=== PATIENT | female | born 1985 | race Caucasian/White ===

== ENCOUNTER 2017-05-30 22:50 | Emergency (ER) | payer BC ==
[2017-05-30 22:57] VITALS: BP 125/66
[2017-05-30] MEDS ORDERED: TORADOL 60 MG VIAL IM ONE (23:14)
--- NOTE | 2017-05-30 23:15 | DR.GENAD ---
HPI - PCP Primary Care Physician: SANTINO - Complaint/Symptoms Chief Complaint:: LEFT WRIST INJURY FROM PLAYING WITH DOG; EDEMA NOTED TO TOP OF WRIST Self Treatment fo Chief Complaint: TYLENOL X 2 - Source History Provided: Patient - Mode of Arrival Mode of Arrival: Ambulatory - Timing Onset of Chief Complaint: 05/30/17 PMH - PMH Past Medical History: Yes Past Medical History: GERD, Hypertension Past Surgical History: Yes Surgical History: Appendectomy, Cholecystectomy - Family History History of Family Medical Conditions: No Family Medical History: Diabetes Mellitus, Hypertension - Social History Does patient currently use any type of tobacco product: No Have you used tobacco products in the last 12 months: No Type of Tobacco Use: None Alcohol Use: None Do you use any recreational Drugs:: No Lives With: Spouse Lives Where: Home - infectious screening In the last 2 months have you had wt loss of >10#?: NO Have you had fever, night sweats or hemotysis?: No Have you traveled outside the country in the last 6 months?: No ROS - Review of Systems Constitutional: No Symptoms Reported Eyes: No Symptoms Reported ENTM: No Symptoms Reported Respiratoy: No Symptoms Reported Cardiovascular: No Symptoms Reported Gastrointestinal/Abdominal: No Symptoms Reported Genitourinary: No Symptoms Reported Neurological: No Symptoms Reported Musculoskeletal: Left, Wrist (Pain s/p tug of war with l00lb dog) Integumentary: No Symptoms Reported Hematologic/Lymphatic: No Symptoms Reported Endocrine: No Symptoms Reported Psychiatric: No Symptoms Reported All Other Systems: Reviewed and Negative PE - Vital Signs Vitals: Temperature 98.5 F Pulse Rate 85 Respiratory Rate 20 Blood Pressure [Left Arm] 131/69 Blood Pressure [Right Arm] 90/50 Blood Pressure 125/66 O2 Sat by Pulse Oximetry 99 - General Limitations: No Limitations General Appearance: Alert, In No Apparent Distress - Head Head Exam: Normal Inspection, Atraumatic - Eyes Eye exam: Normal Appearance, PERRL, EOMI - ENT ENT Exam: Normal Exam External Ear Exam: Normal External Inspection TM/Canal Exam: Bilateral Normal Nose Exam: Normal Nose Exam Mouth Exam: Normal Inspection Throat Exam: Normal Inspection - Neck Neck Exam: Normal Inspection - Chest Chest Inspection: Normal Inspection - Respiratory Respiratory Exam: Normal Lung Sounds Bilat Respiratory Exam: Bilateral Clear to Auscultation - Cardiovascular Cardiovascular Exam: Regular Rate - Abdominal Exam Abdominal Exam: Normal Inspection, Normal Bowel Sounds Abdominal Tenderness: negative: RUQ, RLQ, LUQ, LLQ, Epigastrium, Suprapubic, Diffuse, Mild, Moderate, Severe, Other - Extremities Extremities Exam: Normal Inspection - Back Back Exam: Normal Inspection - Neurologic Neurological Exam: Alert, Oriented X3, CN II-XII Intact - Psychiatric Psychiatric Exam: Normal Affect - Skin Skin Exam: Warm, Dry ROR - XRAY XRAY Interpreted by: Self (No fracture) - Diagnosis Discharge Problem: Left wrist sprain Qualifiers: Encounter type: initial encounter Qualified Code(s): S63.502A - Unspecified sprain of left wrist, initial encounter - Discharge Plan Condition: Stable - Follow ups/Referrals Follow ups/Referrals: ANTONI DE [Primary Care Provider] - 3 days - Instructions
[2017-05-30] MEDS ORDERED: TORADOL 60 MG VIAL ONE (23:17)
[2017-05-31] MEDS ORDERED: NORCO 7.5/325 MG TAB PO ONE (00:31)
[2017-05-31] MEDS ORDERED: NORCO 7.5/325 MG TAB ONE (00:34)
== END 2017-05-31 00:40 | disposition home or self-care (01) ==
LOC: ER 23:00
DX: S63.502A Unspecified sprain of left wrist, initial encounter (principal); Y33.XXXA Other specified events, undetermined intent, initial encounter; Y92.9 Unspecified place or not applicable
CPT/HCPCS: 29125; 73100; 96372; 99282; J1885

== ENCOUNTER 2017-07-01 06:16 | Emergency (ER) | payer BC ==
--- NOTE | 2017-07-01 06:58 | DR.GENAD ---
HPI - PCP Primary Care Physician: liss - Complaint/Symptoms Chief Complaint Doctors Comments: Patient presents with complaint of not feeling well, low grade temperature, nauses w/o vomiting. She denies urinary frequency, dysuria or urgency. Self Treatment fo Chief Complaint: none - Source History Provided: Patient - Mode of Arrival Mode of Arrival: Wheelchair - Timing Onset of Chief Complaint: 07/01/17 PMH - PMH Past Medical History: Yes Past Medical History: GERD, Hypertension Past Surgical History: Yes Surgical History: Appendectomy, Cholecystectomy - Family History History of Family Medical Conditions: Yes Family Medical History: Diabetes Mellitus, Hypertension - Social History Does patient currently use any type of tobacco product: No Have you used tobacco products in the last 12 months: No Type of Tobacco Use: None Does any household member use tobacco: No Alcohol Use: None Do you use any recreational Drugs:: No Lives With: Spouse Lives Where: Home - infectious screening In the last 2 months have you had wt loss of >10#?: NO Have you had fever, night sweats or hemotysis?: No Have you traveled outside the country in the last 6 months?: No Isolation: Standard ROS - Review of Systems Eyes: No Symptoms Reported ENTM: No Symptoms Reported Respiratoy: No Symptoms Reported Cardiovascular: No Symptoms Reported Gastrointestinal/Abdominal: No Symptoms Reported Genitourinary: No Symptoms Reported Neurological: No Symptoms Reported Musculoskeletal: No Symptoms Reported Integumentary: No Symptoms Reported Hematologic/Lymphatic: No Symptoms Reported Endocrine: No Symptoms Reported Psychiatric: No Symptoms Reported All Other Systems: Reviewed and Negative PE - Vital Signs Vitals: Temperature 97.6 F Pulse Rate 83 Respiratory Rate 20 Blood Pressure [Left Arm] 108/69 Blood Pressure [Right Arm] 113/69 Blood Pressure 125/84 O2 Sat by Pulse Oximetry 99 - General Limitations: No Limitations General Appearance: Alert, In No Apparent Distress - Head Head Exam: Normal Inspection, Atraumatic - Eyes Eye exam: Normal Appearance, PERRL, EOMI - ENT ENT Exam: Normal Exam, Normal Oropharynx External Ear Exam: Normal External Inspection TM/Canal Exam: Bilateral Normal Nose Exam: Normal Nose Exam Mouth Exam: Normal Inspection Throat Exam: Normal Inspection - Neck Neck Exam: Normal Inspection, Full ROM - Chest Chest Inspection: Normal Inspection - Respiratory Respiratory Exam: Normal Lung Sounds Bilat Respiratory Exam: Bilateral Clear to Auscultation - Cardiovascular Cardiovascular Exam: Regular Rate, Normal Rhythm - Abdominal Exam Abdominal Exam: Normal Inspection, Normal Bowel Sounds Abdominal Tenderness: negative: RUQ, RLQ, LUQ, LLQ, Epigastrium, Suprapubic, Diffuse, Mild, Moderate, Severe, Other - Extremities Extremities Exam: Normal Inspection, Full ROM - Back Back Exam: Normal Inspection, Full ROM - Neurologic Neurological Exam: Alert, Oriented X3, CN II-XII Intact - Psychiatric Psychiatric Exam: Normal Affect - Skin Skin Exam: Warm, Dry, Intact Course - Reevaluation 1st: Improved ROR - Labs Reviewed Result Diagrams: 07/01/17 07:10 07/01/17 07:10 Laboratory: WBC 10.2 X10^3/uL (3.6-10.0) H 07/01/17 07:10 RBC 4.81 X10^6/uL (3.5-5.4) 07/01/17 07:10 Hgb 14.5 g/dL (12.0-16.0) 07/01/17 07:10 Hct 41.9 % (36.0-47.0) 07/01/17 07:10 MCV 87.0 fL (80.0-100.0) 07/01/17 07:10 MCH 30.0 pg (27.0-34.0) 07/01/17 07:10 MCHC 34.5 g/dL (33.0-35.0) 07/01/17 07:10 RDW 13.4 % (11.6-16.5) 07/01/17 07:10 Plt Count 219 X10^3/uL (150.0-450.0) 07/01/17 07:10 MPV 10.1 fL (7.4-11.0) 07/01/17 07:10 Neut % 77.4 % (42.0-75.0) H 07/01/17 07:10 Lymph % 14.3 % (21.0-51.0) L 07/01/17 07:10 [place] % 6.2 % (0.0-13.0) 07/01/17 07:10 Eos % 1.4 % (0.9-2.9) 07/01/17 07:10 Baso % 0.7 % (0.2-1.0) 07/01/17 07:10 Neut # 7.9 x10^3/uL (2.2-4.8) H 07/01/17 07:10 Lymph # 1.5 X10^3/uL (1.3-2.9) 07/01/17 07:10 [place] # 0.6 x10^3/uL (0.3-0.8) 07/01/17 07:10 Eos # 0.1 x10^3/uL (0.0-0.2) 07/01/17 07:10 Baso # 0.1 X10^3/uL (0.0-0.1) 07/01/17 07:10 Absolute Nucleated RBC 0.0 /100WBC 07/01/17 07:10 Sodium 136 mmol/L (136-145) 07/01/17 07:10 Corrected Sodium 137 mmol/L (136-145) 07/01/17 07:10 Potassium 4.0 mmol/L (3.5-5.1) 07/01/17 07:10 Chloride 102 mmol/L (98-107) 07/01/17 07:10 Carbon Dioxide 25.4 mmol/L (21-32) 07/01/17 07:10 BUN 7 mg/dL (7-18) 07/01/17 07:10 Creatinine 0.77 mg/dL (0.55-1.02) 07/01/17 07:10 Est GFR (MDRD) Af Amer > 60 (>60) 07/01/17 07:10 Est GFR (MDRD) Non-Af > 60 (>60) 07/01/17 07:10 Glucose 124 mg/dL (65-99) H 07/01/17 07:10 Calcium 8.8 mg/dL (8.5-10.1) 07/01/17 07:10 C-Reactive Protein 32.10 mg/L (0-3.0) H 07/01/17 07:10 Streptococcus Screen Negative (NEGATIVE) 07/01/17 07:13 - Diagnosis Discharge Problem: Systemic viral illness - Discharge Plan Condition: Stable - Follow ups/Referrals Follow ups/Referrals: RONA OJEDA [Primary Care Provider] - 3 days - Instructions
[2017-07-01] MEDS ORDERED: NS 1000 ML 1,000 ML ONE (07:07)
[2017-07-01] MEDS: NS 1000 ML 1,000 ML IV ONE (07:18)
[2017-07-01 07:22] LABS: BASOPHILS # (AUTO) 0.1 X10^3/uL (0.0-0.1); BASOPHILS % (AUTO) 0.7 % (0.2-1.0); EOSINOPHILS # (AUTO) 0.1 x10^3/uL (0.0-0.2); EOSINOPHILS % (AUTO) 1.4 % (0.9-2.9); HEMATOCRIT 41.9 % (36.0-47.0); HEMOGLOBIN 14.5 g/dL (12.0-16.0); LYMPHOCYTES # (AUTO) 1.5 X10^3/uL (1.3-2.9); LYMPHOCYTES % (AUTO) 14.3 % (21.0-51.0); MEAN CORPUSCULAR HGB CONC 34.5 g/dL (33.0-35.0); MEAN PLATELET VOLUME 10.1 fL (7.4-11.0); MONOCYTES # (AUTO) 0.6 x10^3/uL (0.3-0.8); MONOCYTES % (AUTO) 6.2 % (0.0-13.0); NEUTROPHILS # (AUTO) 7.9 x10^3/uL (2.2-4.8); NEUTROPHILS % (AUTO) 77.4 % (42.0-75.0); PLATELET COUNT 219 X10^3/uL (150.0-450.0); RED BLOOD COUNT 4.81 X10^6/uL (3.5-5.4); RED CELL DISTRIBUTION WIDTH 13.4 % (11.6-16.5); WHITE BLOOD COUNT 10.2 X10^3/uL (3.6-10.0)
[2017-07-01 07:26] LABS: BLOOD UREA NITROGEN 7 mg/dL (7-18); CALCIUM 8.8 mg/dL (8.5-10.1); CARBON DIOXIDE 25.4 mmol/L (21-32); CHLORIDE 102 mmol/L (98-107); COR NA(FOR HYPERGLY) 137 mmol/L (136-145); CREATININE 0.77 mg/dL (0.55-1.02); SODIUM 136 mmol/L (136-145); eGFR BLACK RACES > 60 (>60); eGFR NON BLACK RACES > 60 (>60)
[2017-07-01 07:50] VITALS: BP 113/69
== END 2017-07-01 08:25 | disposition home or self-care (01) ==
LOC: ER 06:16
DX: B97.89 Other viral agents as the cause of diseases classified elsewhere (principal)
CPT/HCPCS: 36415; 80048; 85025; 86140; 87070; 87880; 96365; 99282; 99283; A4222

== ENCOUNTER 2017-07-04 20:11 | Emergency (ER) | payer BC ==
[2017-07-04 20:16] VITALS: BMI 47.2
--- NOTE | 2017-07-04 20:51 | DR.GENAD ---
HPI - PCP Primary Care Physician: RONA OJEDA - HPI Comment HPI Comment: PAIN PERSISTENT TONIGHT AND INTENSITY IS INCREASING. PATIENT ALSO HAVE SEVERE HEADACHE WITH NAUSEA AND VOMITING. NO FEVER. NO SINUS DRAINAGE. INCREASE STRESS FROM PROBLEM WITH PATIENTS DAUGHTER. - Complaint/Symptoms Chief Complaint Doctors Comments: CHEST PAIN TONIGHT PER BELOW HISTORY. SIMILAR PAIN FEW DAYS AGO. Chief Complaint:: LEFT SIDE CHEST PAIN INTO LEFT NECK , SHOULDER THRU TO BACK CONSTANT PAIN. I AM GETTING SHORT OF BREATH. I CAN'T DISTIGUISH IF THIS IS MY ANXIETY OR SOMETHING IS GOING ON. THIS HAPPENED SATURDAY NIGHT TOO, I WAS JUST HERE ON SATURDAY MORNING. - Nurses notes reviewed Nurses Notes Review: Yes - Source History Provided: Patient - Mode of Arrival Mode of Arrival: Ambulatory - Timing Onset of Chief Complaint: 07/04/17 Came on: Suddenly - Duration Duration: Constant Duration: Days - Severity Severity: Moderate PMH - PMH Past Medical History: Yes Past Medical History: Anxiety, GERD, Hypertension Past Surgical History: Yes Surgical History: Appendectomy, Cholecystectomy - Family History History of Family Medical Conditions: Yes Family Medical History: Diabetes Mellitus, Hypertension - Social History Does patient currently use any type of tobacco product: No Have you used tobacco products in the last 12 months: No Type of Tobacco Use: None Does any household member use tobacco: No Alcohol Use: None Do you use any recreational Drugs:: No Lives With: Spouse, Family Lives Where: Home - infectious screening Have you traveled outside the country in the last 6 months?: No Isolation: Standard ROS - Review of Systems Constitutional: Weakness, Fatigue. negative: Chills, Fever Eyes: No Symptoms Reported. negative: Eye Pain, Discharge ENTM: No Symptoms Reported. negative: Ear Pain, Nose Discharge, Nose Congestion , Throat Pain Respiratoy: No Symptoms Reported, Non-Productive Cough, Short of Breath. negative: Productive Cough, Wheezing, Hemoptysis Cardiovascular: Chest Pain. negative: Edema, Palpitations Gastrointestinal/Abdominal: Nausea, Vomiting Genitourinary: No Symptoms Reported. negative: Dysuria, Frequency, Hematuria Neurological: Headache, Weakness, Dizziness Musculoskeletal: Muscle Pain Integumentary: No Symptoms Reported. negative: Rash, Juandice Hematologic/Lymphatic: No Symptoms Reported Endocrine: No Symptoms Reported All Other Systems: Reviewed and Negative PE - Vital Signs Vitals: Pulse Rate [Apical] 80 Pulse Rate 79 Respiratory Rate 18 Blood Pressure [Left Arm] 137/77 Blood Pressure [Right Arm] 117/75 Blood Pressure 113/82 O2 Sat by Pulse Oximetry 97 - General Limitations: No Limitations General Appearance: Alert - Head Head Exam: Normal Inspection - Eyes Eye exam: Normal Appearance - ENT ENT Exam: Normal External Ear Exam External Ear Exam: Normal External Inspection TM/Canal Exam: Bilateral Normal Nose Exam: Normal Nose Exam Mouth Exam: Normal Inspection Throat Exam: Normal Inspection - Neck Neck Exam: Trachea Midline - Chest Chest Inspection: Symmetric Chest Wall Rise - Respiratory Respiratory Exam: Normal Lung Sounds Bilat Respiratory Exam: Bilateral Clear to Auscultation - Cardiovascular Cardiovascular Exam: Regular Rate, Normal Rhythm, Normal Heart Sounds - Abdominal Exam Abdominal Exam: Normal Bowel Sounds, Soft. negative: Tenderness - Extremities Extremities Exam: Normal Inspection - Back Back Exam: Normal Inspection - Neurologic Neurological Exam: Alert, Oriented X3 - Psychiatric Psychiatric Exam: Normal Affect, Normal Mood - Skin Skin Exam: Normal Color MDM - Additional Information Additional Information Obtained From: Family - Differential Diagnosis Differential Diagnosis: CHEST PAIN, KS, PNEUMONIA, PE, SINUSITIS, CVA, CEREBRAL TUMOR Course - Treatment Treatment: SEE ORDERS. - Education/Counseling Education/Counseling: Patient, Family, Education Educated On: Treatment, Diagnosis, Needs for Follow Up ROR - Labs Reviewed Laboratory Results Reviewed?: Yes Result Diagrams: 07/04/17 20:57 07/04/17 20:57 Laboratory: WBC 9.8 X10^3/uL (3.6-10.0) 07/04/17 20:57 RBC 4.84 X10^6/uL (3.5-5.4) 07/04/17 20:57 Hgb 14.5 g/dL (12.0-16.0) 07/04/17 20:57 Hct 42.2 % (36.0-47.0) 07/04/17 20:57 MCV 87.1 fL (80.0-100.0) 07/04/17 20:57 MCH 30.0 pg (27.0-34.0) 07/04/17 20:57 MCHC 34.5 g/dL (33.0-35.0) 07/04/17 20:57 RDW 13.6 % (11.6-16.5) 07/04/17 20:57 Plt Count 259 X10^3/uL (150.0-450.0) 07/04/17 20:57 MPV 9.8 fL (7.4-11.0) 07/04/17 20:57 Neut % 70.1 % (42.0-75.0) 07/04/17 20:57 Lymph % 18.9 % (21.0-51.0) L 07/04/17 20:57 [place] % 8.7 % (0.0-13.0) 07/04/17 20:57 Eos % 1.7 % (0.9-2.9) 07/04/17 20:57 Baso % 0.6 % (0.2-1.0) 07/04/17 20:57 Neut # 6.9 x10^3/uL (2.2-4.8) H 07/04/17 20:57 Lymph # 1.9 X10^3/uL (1.3-2.9) 07/04/17 20:57 [place] # 0.9 x10^3/uL (0.3-0.8) H 07/04/17 20:57 Eos # 0.2 x10^3/uL (0.0-0.2) 07/04/17 20:57 Baso # 0.1 X10^3/uL (0.0-0.1) 07/04/17 20:57 Absolute Nucleated RBC 0.0 /100WBC 07/04/17 20:57 INR Target Range - 07/04/17 20:57 INR 0.92 (0.8-1.3) 07/04/17 20:57 PTT 28.4 SECONDS (22.9-36.5) 07/04/17 20:57 PTT Comment - 07/04/17 20:57 D-Dimer 502 ng/mL (0-400) H* 07/04/17 20:57 Sodium 139 mmol/L (136-145) 07/04/17 20:57 Corrected Sodium TNP 07/04/17 20:57 Potassium 3.9 mmol/L (3.5-5.1) 07/04/17 20:57 Chloride 102 mmol/L (98-107) 07/04/17 20:57 Carbon Dioxide 27.8 mmol/L (21-32) 07/04/17 20:57 BUN 8 mg/dL (7-18) 07/04/17 20:57 Creatinine 0.89 mg/dL (0.55-1.02) 07/04/17 20:57 Est GFR (MDRD) Af Amer > 60 (>60) 07/04/17 20:57 Est GFR (MDRD) Non-Af > 60 (>60) 07/04/17 20:57 Glucose 105 mg/dL (65-99) H 07/04/17 20:57 Calcium 9.0 mg/dL (8.5-10.1) 07/04/17 20:57 Corrected Calcium TNP 07/04/17 20:57 Total Bilirubin 0.20 mg/dL (0.2-1.0) 07/04/17 20:57 AST 26 Units/L (15-37) 07/04/17 20:57 ALT 35 Units/L (12-78) 07/04/17 20:57 Alkaline Phosphatase 81 Units/L (46-116) 07/04/17 20:57 Creatine Kinase 70 Units/L (26-192) 07/04/17 20:57 CK-MB (CK-2) < 1.0 ng/mL (0-4.0) 07/04/17 20:57 CK/CKMB % Calc 1.4 % (<4) 07/04/17 20:57 Troponin I < 0.02 ng/mL (0-1.5) 07/04/17 20:57 Total Protein 7.6 g/dL (6.4-8.2) 07/04/17 20:57 Albumin 3.6 g/dL (3.4-5.0) 07/04/17 20:57 Globulin 4.0 g/dL (2.5-4.5) 07/04/17 20:57 Albumin/Globulin Ratio 0.9 Ratio (1.1-2.1) L 07/04/17 20:57 H. pylori IgG Antibody Negative (NEGATIVE) 07/04/17 20:57 - XRAY XRAY Interpreted by: Radiologist XRAY Findings: REPORT DISCUSS WITH PATIENT AND HER . - EKG Rhythm: NSR (EKG NOTED) - Diagnosis Discharge Problem: Chest pain Qualifiers: Chest pain type: precordial pain Qualified Code(s): R07.2 - Precordial pain Headache Qualifiers: Headache type: tension-type Headache chronicity pattern: acute headache Intractability: intractable Qualified Code(s): G44.201 - Tension-type headache, unspecified, intractable - Discharge Plan Disposition: HOME, SELF-CARE Condition: Stable Prescriptions: Hydroxyzine Pamoate [Vistaril] 50 mg PO TID PRN #20 cap PRN Reason: Ketorolac Tromethamine [Toradol Tab] 10 mg PO Q8H PRN #20 tab PRN Reason: Pain Ondansetron [Zofran ODT 8 mg] 8 mg PO Q8H PRN #15 tab PRN Reason: Nausea/Vomiting - Follow ups/Referrals Follow ups/Referrals: RONA OJEDA [Primary Care Provider] - 3 days - Instructions Instructions: Tension Headache, [id number], Chest Pain Observation Additional Instructions: RETURN TO ED IF WORSE.
[2017-07-04 21:06] LABS: BASOPHILS # (AUTO) 0.1 X10^3/uL (0.0-0.1); BASOPHILS % (AUTO) 0.6 % (0.2-1.0); EOSINOPHILS # (AUTO) 0.2 x10^3/uL (0.0-0.2); EOSINOPHILS % (AUTO) 1.7 % (0.9-2.9); HEMATOCRIT 42.2 % (36.0-47.0); HEMOGLOBIN 14.5 g/dL (12.0-16.0); LYMPHOCYTES # (AUTO) 1.9 X10^3/uL (1.3-2.9); LYMPHOCYTES % (AUTO) 18.9 % (21.0-51.0); MEAN CORPUSCULAR HGB CONC 34.5 g/dL (33.0-35.0); MEAN CORPUSCULAR VOLUME 87.1 fL (80.0-100.0); MEAN PLATELET VOLUME 9.8 fL (7.4-11.0); MONOCYTES # (AUTO) 0.9 x10^3/uL (0.3-0.8); MONOCYTES % (AUTO) 8.7 % (0.0-13.0); NEUTROPHILS # (AUTO) 6.9 x10^3/uL (2.2-4.8); NEUTROPHILS % (AUTO) 70.1 % (42.0-75.0); PLATELET COUNT 259 X10^3/uL (150.0-450.0); RED BLOOD COUNT 4.84 X10^6/uL (3.5-5.4); RED CELL DISTRIBUTION WIDTH 13.6 % (11.6-16.5); WHITE BLOOD COUNT 9.8 X10^3/uL (3.6-10.0)
[2017-07-04 21:27] LABS: ALANINE AMINOTRANSFERASE 35 Units/L (12-78); ALBUMIN 3.6 g/dL (3.4-5.0); ALKALINE PHOSPHATASE 81 Units/L (46-116); ASPARTATE AMINO TRANSFERASE 26 Units/L (15-37); BLOOD UREA NITROGEN 8 mg/dL (7-18); CARBON DIOXIDE 27.8 mmol/L (21-32); CHLORIDE 102 mmol/L (98-107); CKMB % 1.4 % (<4); CREATINE KINASE 70 Units/L (26-192); CREATINE KINASE MB < 1.0 ng/mL (0-4.0); CREATININE 0.89 mg/dL (0.55-1.02); SODIUM 139 mmol/L (136-145); TOTAL PROTEIN 7.6 g/dL (6.4-8.2); TROPONIN I < 0.02 ng/mL (0-1.5); eGFR BLACK RACES > 60 (>60); eGFR NON BLACK RACES > 60 (>60)
--- NOTE | 2017-07-04 22:19 | RAD ---
Chest, one view Indication: Left-sided chest pain, shortness of breath Comparison: 07/11/2016 Findings: Cardiac silhouette size is within normal limits for technique and low lung volumes. The anibal gs are hypoinflated, but essentially clear without dense infiltrate or large effusion. Impression: No acute chest process. Reported By:
--- NOTE | 2017-07-04 22:24 | CT ---
CT head without contrast Indication: Acute frontal headache Comparison: None Technique: CT images of the head were obtained without contrast. Automatic exposure control was utili MynewMDd. Findings: There is no acute bleed, generalized edema, mass effect, or abnormal extra-axial collection . The ventricles are nondilated. No acute skeletal abnormality. The visualized paranasal sinuses and mastoid air cells are clear. Impression: No acute intracranial abnormality. Reported By:
--- NOTE | 2017-07-04 23:07 | CT ---
CTA chest Indication: Left-sided chest pain Technique: Helical CT images of the chest were obtained with IV contrast. Reformatted images in the c oronal and sagittal planes and 3D MIP images were also generated for review. Comparison: None Findings: Contrast bolus timing is adequate for detection of PTE. No pulmonary thromboembolus is iden tified. There is no pulmonary arterial dilatation or evidence of right heart strain. The heart size i s normal without pericardial effusion. The thoracic aorta and great vessels are normal in contour and caliber. The central airways are patent. There is no lymphadenopathy. The lungs are clear without fo apolinar consolidation or incidental nodule/mass. No pleural effusion or pneumothorax is identified. Limited arterial phase images of the upper abdomen demonstrate no acute abnormality. No aggressive os seous lesions are identified. Impression: No PTE or acute chest process. Reported By:
[2017-07-04] MEDS ORDERED: TORADOL 30 MG VIAL IVP ONE (23:26)
[2017-07-04] MEDS ORDERED: VISTARIL PO ONE ×2 (23:27→23:32)
[2017-07-04] MEDS ORDERED: TORADOL 30 MG VIAL ONE (23:32)
[2017-07-04 23:48] VITALS: BP 137/77
== END 2017-07-04 23:48 | disposition home or self-care (01) ==
LOC: ER 20:24
DX: R07.2 Precordial pain (principal); G44.201 Tension-type headache, unspecified, intractable
CPT/HCPCS: 36415; 70450; 71010; 71275; 80053; 82550; 82553; 84484; 85025; 85378; 85610; 85730; 86677; 93005; 93010; 96365; 96374; 99283; A4222; Q0177; J1885

== ENCOUNTER 2017-07-26 21:50 | Emergency (ER) | payer BC ==
[2017-07-26 21:58] VITALS: BP 128/73; BMI 46.5
--- NOTE | 2017-07-26 23:29 | DR.GENAD ---
HPI - PCP Primary Care Physician: srinivasa - Complaint/Symptoms Chief Complaint Doctors Comments: Patient is complaining of sore throat; problems swallowing, cough with nasal congestion off and on for the past three weeks. States she has a cought but is non-productive. She denies tobacco usage. states her periods has been regular and her LMP was around [place] and she is not because she cannot get without help. She denies dysuria, hematuria or chest pain. Chief Complaint:: patient has sore throat she she swallows - Nurses notes reviewed Nurses Notes Review: Yes - Source History Provided: Patient - Mode of Arrival Mode of Arrival: Ambulatory - Timing Onset of Chief Complaint: 07/26/17 Came on: Gradually - Duration Duration: Intermittent How lon Duration: Weeks - Location Location: sore throat - Severity Severity: Moderate - Modifying Factors Worsens:: swallowing and cough Improves:: nothing PMH - PMH Past Medical History: Yes Past Medical History: Anxiety, GERD, Hypertension Past Surgical History: Yes Surgical History: Appendectomy, Cholecystectomy - Family History History of Family Medical Conditions: Yes Family Medical History: Diabetes Mellitus, Hypertension - Social History Does patient currently use any type of tobacco product: No Have you used tobacco products in the last 12 months: No Type of Tobacco Use: None Does any household member use tobacco: No Alcohol Use: None Do you use any recreational Drugs:: No Lives With: Family Lives Where: Home - infectious screening In the last 2 months have you had wt loss of >10#?: NO Have you had fever, night sweats or hemotysis?: No Have you traveled outside the country in the last 6 months?: No Isolation: Standard ROS - Review of Systems Constitutional: No Symptoms Reported, Fever Eyes: No Symptoms Reported. negative: See HPI, Eye Pain, Blurred Vision, Tearing, Discharge, Photophobia, Diplopia, Other ENTM: Nose Discharge, Nose Congestion, Throat Pain. negative: No Symptoms Reported, See HPI, Ear Pain, Ear Discharge, Pulling on Ears, Hearing Loss, Nose Pain, Epistaxis, Mouth Pain, Mouth Swelling, Loose Teeth, Drooling, Throat Swelling, Ear Foreign Body Respiratoy: No Symptoms Reported, Non-Productive Cough. negative: See HPI, Productive Cough, Moist Cough, Dry Cough, Hacking Cough, Barking Cough, Brassy Cough, Orthopnea, Short of Breath, Stridor, Wheezing, Hemoptysis, Other Cardiovascular: No Symptoms Reported. negative: See HPI, Chest Pain, Edema, Palpitations, Syncope, Cyanosis, Skin Mottling, Other Gastrointestinal/Abdominal: No Symptoms Reported. negative: See HPI, Abdominal Pain, Constipation, Diarrhea, Nausea, Vomiting, Food Intolerance, Other Genitourinary: No Symptoms Reported. negative: See HPI, Discharge, Dysuria, Frequency, Hematuria, Pain, Bleeding, Other Neurological: No Symptoms Reported. negative: See HPI, Anxiety, Depressed, Emotional Problems, Headache, Numbness, Paresthesia, Pre-existing Deficit, Seizure, Tingling, Tremors, Weakness, Dizziness, Problems Walking, Speech Problem, Other Musculoskeletal: No Symptoms Reported Integumentary: No Symptoms Reported Hematologic/Lymphatic: No Symptoms Reported Endocrine: No Symptoms Reported. negative: See HPI, Excessive Sweating, Flushing, Intolerance to Cold, Intolerance to Heat, Increased Hunger, Increased Thirst, Increased Urine, Unexplained Weight Gain, Unexplained Weight Loss, Failure to Thrive, Decreased Appetite, Other Psychiatric: No Symptoms Reported. negative: See HPI, Anxiety, Depression, Hallucinations, Excessive crying, Suicidal, Other PE - Vital Signs Vitals: Temperature 97.4 F Pulse Rate 78 Respiratory Rate 18 Blood Pressure [Left Arm] 137/77 Blood Pressure [Right Arm] 117/75 Blood Pressure 128/73 O2 Sat by Pulse Oximetry 97 - General Limitations: No Limitations General Appearance: Alert, In Distress (mild) - Head Head Exam: Normal Inspection, Atraumatic, Normocephalic - Eyes Eye exam: Normal Appearance, PERRL, EOMI. negative: Scleral Icterus, Conjunctival Injection, Nystagmus, Miosis, Mydrasis, Periorbital Swelling, Periorbital Tenderness, Other - ENT ENT Exam: Normal Exam, Normal Oropharynx, Normal External Ear Exam, TM's Normal Bilaterally. negative: Mucous Membranes Moist, Mucous Membranes Dry, Other External Ear Exam: Normal External Inspection TM/Canal Exam: Bilateral Normal Nose Exam: Normal Nose Exam Mouth Exam: Normal Inspection. negative: Drooling, Trismus, Lip Swelling, Tongue Elevation, Tongue Swelling, Laceration, Other Throat Exam: Normal Inspection - Neck Neck Exam: Normal Inspection, Full ROM, Trachea Midline - Chest Chest Inspection: Normal Inspection, Symmetric Chest Wall Rise - Respiratory Respiratory Exam: Normal Lung Sounds Bilat. negative: Accessory Muscle Use, Chest Wall Tenderness, Prolonged Expiratory Phase, Respiratory Distress, Stridor , Other Respiratory Exam: Bilateral Clear to Auscultation - Cardiovascular Cardiovascular Exam: Regular Rate, Normal Rhythm, Normal Heart Sounds - Abdominal Exam Abdominal Exam: Normal Inspection, Normal Bowel Sounds, Soft, Tenderness ( epigastric tenderness) Abdominal Tenderness: Epigastrium, Mild. negative: RUQ, RLQ, LUQ, LLQ, Suprapubic, Diffuse, Moderate, Severe, Other - Extremities Extremities Exam: Normal Inspection, Full ROM, Normal Capillary Refill. negative: Tenderness, Edema, Joint Swelling, Calf Tenderness, Other - Back Back Exam: Normal Inspection, Full ROM - Neurologic Neurological Exam: Alert, Oriented X3, CN II-XII Intact, Normal Gait, Reflexes Normal - Psychiatric Psychiatric Exam: Normal Affect, Normal Mood. negative: Depressed, Agitated, Anxious, Flat Affect, Manic, Homicidal Ideation, Suicidal Ideation, Other - Skin Skin Exam: Warm, Dry, Intact, Normal Color ROR - Labs Reviewed Laboratory Results Reviewed?: Yes (all labs results reviewed and discussed with patient) Laboratory: Influenza Type A (PCR) Negative (NEGATIVE) 07/26/17 22:48 Influenza Type B (PCR) Negative (NEGATIVE) 07/26/17 22:48 Streptococcus Screen Negative (NEGATIVE) 07/26/17 22:49 - Diagnosis Discharge Problem: Bronchitis, Pharyngitis - Discharge Plan Disposition: HOME, SELF-CARE Condition: Stable Prescriptions: Amoxicillin/Potassium Clav [Augmentin 875-125 Tablet] 1 tab PO Q12H #20 tab Cetirizine HCl [Zyrtec Tab 10 mg] 10 mg PO DAILY #30 tab Fluticasone Nasal [place] [FLONASE NASAL SPRAY *] 2 sprays ENOSTRIL DAILY #1 each - Follow ups/Referrals Follow ups/Referrals: ANTONI DE [Primary Care Provider] - 3 days - Instructions Instructions: Sinusitis, Adult, [id number], Acute Bronchitis, Strep Throat, [id number]
[2017-07-27] MEDS ORDERED: ROCEPHIN VIAL 1 GM IM ONE (00:05)
[2017-07-27] MEDS ORDERED: BENADRYL CAP 50 MG PO ONE (00:06)
[2017-07-27] MEDS ORDERED: TUSSIONEX PENNKINETIC SUSP PO ONE (00:11)
[2017-07-27] MEDS ORDERED: BENADRYL CAP/TAB 25 MG PO ONE (00:33)
[2017-07-27] MEDS ORDERED: TUSSIONEX PENNKINETIC SUSP ONE (00:34)
[2017-07-27] MEDS ORDERED: ROCEPHIN VIAL 1 GM ONE (00:34)
== END 2017-07-27 00:28 | disposition home or self-care (01) ==
LOC: ER 21:50
DX: J40 Bronchitis, not specified as acute or chronic (principal); J02.9 Acute pharyngitis, unspecified
CPT/HCPCS: 87070; 87502; 87880; 96372; 99282; 99283; J0696

== ENCOUNTER 2017-08-04 17:32 | Emergency (ER) | payer BC ==
[2017-08-04 17:40] VITALS: BP 126/73; BMI 46.5
[2017-08-04] MEDS ORDERED: TORADOL 60 MG VIAL IM ONE (18:26)
--- NOTE | 2017-08-04 18:27 | DR.GENAD ---
HPI - PCP Primary Care Physician: RONA OJEDA - Complaint/Symptoms Chief Complaint Doctors Comments: Patient reports that she was playing baseball with her children and when she caught the ball the 5th digit was hyperextended; she heard a pop. She now has pain of the digit Chief Complaint:: PATIENT STATED THAT SHE IS HAVING LEFT PINKY, WRIST AND ARM PAIN. SHE STATED THAT IT IS A BASEBALL INJURY. - Source History Provided: Patient - Mode of Arrival Mode of Arrival: Ambulatory - Timing Onset of Chief Complaint: 08/04/17 PMH - PMH Past Medical History: Yes Past Medical History: Anxiety, GERD, Hypertension Past Surgical History: Yes Surgical History: Appendectomy, Cholecystectomy - Family History History of Family Medical Conditions: Yes Family Medical History: Diabetes Mellitus, Hypertension - Social History Does patient currently use any type of tobacco product: No Have you used tobacco products in the last 12 months: No Type of Tobacco Use: None Does any household member use tobacco: No Alcohol Use: None Do you use any recreational Drugs:: No Lives With: Family Lives Where: Home - infectious screening In the last 2 months have you had wt loss of >10#?: NO Have you had fever, night sweats or hemotysis?: No Have you traveled outside the country in the last 6 months?: No Isolation: Standard ROS - Review of Systems Eyes: No Symptoms Reported ENTM: No Symptoms Reported Respiratoy: No Symptoms Reported Cardiovascular: No Symptoms Reported Gastrointestinal/Abdominal: No Symptoms Reported Genitourinary: No Symptoms Reported Neurological: No Symptoms Reported Musculoskeletal: No Symptoms Reported Integumentary: No Symptoms Reported Hematologic/Lymphatic: No Symptoms Reported Endocrine: No Symptoms Reported Psychiatric: No Symptoms Reported All Other Systems: Reviewed and Negative PE - Vital Signs Vitals: Temperature 97.3 F Pulse Rate 85 Respiratory Rate 20 Blood Pressure [Left Arm] 137/77 Blood Pressure [Right Arm] 117/75 Blood Pressure 126/73 O2 Sat by Pulse Oximetry 97 - General Limitations: No Limitations General Appearance: Alert, In No Apparent Distress - Head Head Exam: Normal Inspection, Atraumatic - Eyes Eye exam: Normal Appearance, PERRL, EOMI - ENT ENT Exam: Normal Exam External Ear Exam: Normal External Inspection TM/Canal Exam: Bilateral Normal Nose Exam: Normal Nose Exam Mouth Exam: Normal Inspection Throat Exam: Normal Inspection - Neck Neck Exam: Normal Inspection, Full ROM - Chest Chest Inspection: Normal Inspection - Respiratory Respiratory Exam: Normal Lung Sounds Bilat Respiratory Exam: Bilateral Clear to Auscultation - Cardiovascular Cardiovascular Exam: Regular Rate, Normal Rhythm - Abdominal Exam Abdominal Exam: Normal Inspection Abdominal Tenderness: negative: RUQ, RLQ, LUQ, LLQ, Epigastrium, Suprapubic, Diffuse, Mild, Moderate, Severe, Other - Extremities Extremities Exam: Tenderness (5th digit of left hand) - Back Back Exam: Normal Inspection, Full ROM - Neurologic Neurological Exam: Alert, Oriented X3, CN II-XII Intact - Psychiatric Psychiatric Exam: Normal Affect - Skin Skin Exam: Warm, Dry, Intact Course - Reevaluation 1st: Improved - Education/Counseling Educated On: Treatment, Diagnosis, Prognosis, Needs for Follow Up ROR - XRAY XRAY Interpreted by: Radiologist (X Ray: No acute fracture or dislocation of the left hand.) - Diagnosis Discharge Problem: Hyperextension injury of finger Qualifiers: Encounter type: initial encounter Laterality: left Qualified Code(s): S69.82XA - Other specified injuries of left wrist, hand and finger(s), initial encounter - Discharge Plan Condition: Stable - Follow ups/Referrals Follow ups/Referrals: RONA OJEDA [Primary Care Provider] - 3 days - Instructions
[2017-08-04] MEDS ORDERED: TORADOL 60 MG VIAL ONE (18:30)
--- NOTE | 2017-08-04 19:21 | RAD ---
History: Injury of the 5th digit of the left hand. Hyperextension after being hit with a baseball. Study: Three views of the left hand. Comparison: None. Findings: No acute cortical disruption or dislocation of the left hand is evident. The joint spaces are maintai roberto without periarticular erosion or demineralization. There is no radiopaque foreign body. The visua lized portions the carpal bones are grossly unremarkable. The soft tissues are within normal limits. Impression: No acute fracture or dislocation of the left hand. Reported By:
== END 2017-08-04 19:34 | disposition home or self-care (01) ==
LOC: ER 17:32
DX: S69.82XA Other specified injuries of left wrist, hand and finger(s), initial encounter (principal); Y93.64 Activity, baseball; Y92.89 Other specified places as the place of occurrence of the external cause
CPT/HCPCS: 29130; 73130; 96372; 99282; J1885

== ENCOUNTER → 2017-08-06 | Outpatient (CLI) | payer BC ==
--- NOTE | 2017-08-06 14:58 | MG ---
Examination: Bilateral diagnostic mammogram and bilateral breast ultrasound. Clinical history: Palpable areas of concern at the 2 o'clock position in the right breast and the 9 o 'clock position in the left breast. Technique: Multiple digital images of both breasts were obtained. Targeted left breast ultrasound was obtained evaluating the area of palpable concern at the 9 o'clock position. Targeted right breast ul trasound was obtained evaluating the area of palpable concern at the 2 o'clock position. Comparison: 03/24/2015. Findings: The breasts are composed of scattered fibroglandular densities. No mammographic abnormality is evident in the area of palpable concern at the 9 o'clock position in t he left breast. There is an ill-defined hazy density seen at approximately the 2 o'clock position in the right breast , correlating with the area of palpable concern. No suspicious mass, area of architectural distortion or suspicious cluster of microcalcifications is noted. Targeted left breast ultrasound evaluating the area palpable concern at the 9 o'clock position reveal s no sonographic abnormality. No suspicious cystic or solid mass is noted. Targeted right breast ultrasound evaluating the area of palpable concern at the 2 o'clock position re veals under oval heterogeneous solid-appearing mixed echogenicity mass measuring 1.8 x 0.7 x 2.5 cm, seen at the 2 o'clock position approximately 10 cm from the nipple, correlating with the area of palp able concern. A bruise is seen in this area, as reported by the technologist. The patient denies a kn own injury. Findings probably represent an evolving hematoma. A follow-up right diagnostic mammogram and right breast ultrasound is recommended in 3 months to ensure complete resolution of the findings in the right breast. Impression: 1. Probable evolving hematoma at the 2 o'clock position in the right breast, as described above. BI-RADS category 3/III (THREE) - PROBABLY BENIGN FINDING; SHORT INTERVAL FOLLOW-UP SUGGESTED. Recommend a follow-up right diagnostic mammogram and right breast ultrasound in 3 months to re-evalua te. Diagnostic CAD was utilized and reviewed. * 0 (ZERO) - ASSESSMENT INCOMPLETE; ADDITIONAL IMAGING IS NEEDED. * 0C - ASSESSMENT INCOMPLETE, NEEDS ADDITIONAL IMAGING EVALUATION AND/OR PRIOR MAMMOGRAMS FOR COMPARI SON. * 1/1 (ONE) - NEGATIVE. * 2/II (TWO) - BENIGN FINDINGS. * 3/III (THREE) - PROBABLY BENIGN FINDING; SHORT INTERVAL FOLLOW-UP SUGGESTED. * 4/IV (FOUR) - SUSPICIOUS ABNORMALITY; BIOPSY SHOULD BE CONSIDERED. * 5/V - HIGHLY SUSPICIOUS OF MALIGNANCY; BIOPSY SHOULD BE PERFORMED. * 6/IV - KNOWN BIOPSY PROVEN MALIGNANCY-APPROPRIATE ACTION SHOULD BE TAKEN. A NEGATIVE X-RAY REPORT SHOULD NOT DELAY BIOPSY IF A DOMINANT OR CLINICALLY SUSPICIOUS MASS IS PRESENT; 4 TO 8 PERCENT OF CANCERS ARE NOT IDENTIFIED BY X-RAY. A NEGATIVE REPORT MAY REINFORCE THE CLINICAL IMPRESSION. ADENOSIS AND DENSE BREASTS MAY OBSCURE AN UNDERLYING NEOPLASM. Reported By:
== END ==
LOC: RAD 12:21
PROVIDERS: ATTEND Nurse Practitioner Family
DX: R22.1 Localized swelling, mass and lump, neck (principal); N60.19 Diffuse cystic mastopathy of unspecified breast
CPT/HCPCS: 76642; 77066

== ENCOUNTER 2017-08-11 21:10 | Emergency (ER) | payer BC ==
[2017-08-11 21:20] VITALS: BP 120/69; BMI 44.6
--- NOTE | 2017-08-11 23:13 | DR.GENAD ---
HPI - PCP Primary Care Physician: srinivasa - Complaint/Symptoms Chief Complaint:: sore on right breast - Source History Provided: Patient - Mode of Arrival Mode of Arrival: Ambulatory - Timing Onset of Chief Complaint: 08/09/17 PMH - PMH Past Medical History: Yes Past Medical History: Anxiety, GERD, Hypertension Past Surgical History: Yes Surgical History: Appendectomy, Cholecystectomy - Family History History of Family Medical Conditions: Yes Family Medical History: Diabetes Mellitus, Hypertension - Social History Does patient currently use any type of tobacco product: No Have you used tobacco products in the last 12 months: No Type of Tobacco Use: Cigarettes Does any household member use tobacco: No Alcohol Use: None Do you use any recreational Drugs:: No Lives With: Spouse, Family Lives Where: Home - infectious screening In the last 2 months have you had wt loss of >10#?: NO Have you had fever, night sweats or hemotysis?: No Have you traveled outside the country in the last 6 months?: No Isolation: Standard PE - Vital Signs Vitals: Temperature 98.2 F Pulse Rate 88 Respiratory Rate 18 Blood Pressure [Left Arm] 137/77 Blood Pressure [Right Arm] 117/75 Blood Pressure 120/69 O2 Sat by Pulse Oximetry 96 - Discharge Plan Disposition: LWBS After Triage Condition: Stable - Follow ups/Referrals Follow ups/Referrals: ANTONI DE [Primary Care Provider] - 3 days - Instructions
== END 2017-08-11 23:10 | disposition left against medical advice (07) ==
LOC: ER 21:10
DX: N64.4 Mastodynia (principal)
CPT/HCPCS: 99281

== ENCOUNTER 2017-08-12 09:59 | Inpatient (IN) | payer BC ==
[2017-08-12 11:49] VITALS: BMI 44.6
--- NOTE | 2017-08-12 12:50 | DR.H&P ---
H&P - History & Physical for Day of: H&P Date: 08/12/17 - Chief Complaint Chief Complaint: right breast pain, wound - Allergies Allergies/Adverse Reactions: Allergies Allergy/AdvReac Type Severity Reaction Status Date / Time ciprofloxacin Allergy Verified 07/04/17 20:17 sulfamethoxazole Allergy Verified 07/04/17 20:17 - History of Present Illness History of Present Illness: patient is a 32-year-old white female who was a direct admit from Dr. Lim's office after failing to improve with outpatient therapy for right breast possible mastitis. Plan to admit patient for further evaluation of right breast pain and wound. Plan to obtain wound cultures and blood cultures and administer IV antibiotics as well as ultrasound of the right breast to rule out abscess formation. Patient has a past medical history of high blood pressure, we will resume home medications. - Past Medical History Past Medical History: Anxiety, GERD, Hypertension - Past Surgical History Surgical History: Appendectomy, Cholecystectomy - Family History Family Medical History: Diabetes Mellitus, Cancer, Coronary Artery Disease, Hypertension - Social History Does patient currently use any type of tobacco product: Yes Have you used tobacco products in the last 12 months: Yes Type of Tobacco Use: Cigarettes Does any household member use tobacco: No Alcohol Use: None Drug Use: None - Review of Systems Constitutional: Fever, Chills Eyes: No Symptoms Reported ENT: No Symptoms Reported Respiratory: No Symptoms Reported Cardiovascular: No Symptoms Reported Gastrointestinal: Nausea Genitourinary: Other (VAGINAL YEAST INFECTION) Musculoskeletal: No Symptoms Reported Skin: Wound (RIGHT BREAST) - Physical Exam Vital Signs: Temperature 97.8 F Pulse Rate [Left Brachial] 67 Respiratory Rate 18 Blood Pressure [Left Arm] 131/72 Blood Pressure [Right Arm] 117/75 Blood Pressure 120/69 Oriented: Normal Eyes: Normal Ear: Normal Nose: Normal Throat: Normal Respiratory: Clear Throughout Cardiovascular: Normal : Normal Auscultation: Bowel Sounds: Normal Palpation: Normal Tenderness: Normal Skin: Red, Tender, Hot, Wound (RIGHT LATERAL BREAST REDNESS WITH INCREASED WARMTH AND D/C) Musculoskeletal: Normal Psychiatric: Anxiety Speech Pattern: Clear - Assessment/Plan (1) Acute mastitis of right breast Status: Acute Plan: ADMIT, WOUND CULTURE. IV ATBX, ADMISSION LABS INCLUDING BLOOD CULTURES. US RIGHT BREAST, PAIN CONTROL (2) Cellulitis of right breast Status: Acute
[2017-08-12] MEDS ORDERED: NS 500 ML IV 500 ML IV ONE (13:13)
[2017-08-12 13:19] LABS: ALANINE AMINOTRANSFERASE 71 Units/L (12-78); ALBUMIN 3.7 g/dL (3.4-5.0); ALKALINE PHOSPHATASE 97 Units/L (46-116); ASPARTATE AMINO TRANSFERASE 86 Units/L (15-37); BLOOD UREA NITROGEN 8 mg/dL (7-18); CALCIUM 8.5 mg/dL (8.5-10.1); CARBON DIOXIDE 27.3 mmol/L (21-32); CHLORIDE 103 mmol/L (98-107); COR NA(FOR HYPERGLY) 140 mmol/L (136-145); CREATININE 0.83 mg/dL (0.55-1.02); SODIUM 139 mmol/L (136-145); TOTAL PROTEIN 7.5 g/dL (6.4-8.2); eGFR BLACK RACES > 60 (>60); eGFR NON BLACK RACES > 60 (>60)
[2017-08-12 13:27] LABS: BASOPHILS # (AUTO) 0.1 X10^3/uL (0.0-0.1); BASOPHILS % (AUTO) 0.5 % (0.2-1.0); EOSINOPHILS # (AUTO) 0.2 x10^3/uL (0.0-0.2); EOSINOPHILS % (AUTO) 1.5 % (0.9-2.9); HEMATOCRIT 42.4 % (36.0-47.0); HEMOGLOBIN 14.3 g/dL (12.0-16.0); LYMPHOCYTES # (AUTO) 1.6 X10^3/uL (1.3-2.9); LYMPHOCYTES % (AUTO) 13.6 % (21.0-51.0); MEAN CORPUSCULAR HEMOGLOBIN 29.9 pg (27.0-34.0); MEAN CORPUSCULAR HGB CONC 33.7 g/dL (33.0-35.0); MEAN CORPUSCULAR VOLUME 88.7 fL (80.0-100.0); MEAN PLATELET VOLUME 10.8 fL (7.4-11.0); MONOCYTES # (AUTO) 0.8 x10^3/uL (0.3-0.8); MONOCYTES % (AUTO) 7.3 % (0.0-13.0); NEUTROPHILS # (AUTO) 8.9 x10^3/uL (2.2-4.8); NEUTROPHILS % (AUTO) 77.1 % (42.0-75.0); PLATELET COUNT 225 X10^3/uL (150.0-450.0); RED BLOOD COUNT 4.78 X10^6/uL (3.5-5.4); RED CELL DISTRIBUTION WIDTH 13.9 % (11.6-16.5); WHITE BLOOD COUNT 11.5 X10^3/uL (3.6-10.0)
[2017-08-12] MEDS: DIFLUCAN PO SCH (13:35)
[2017-08-12] MEDS: TEFLARO 600 MG in D5W 50 ML IV 50 ML IV SCH ×2 (13:35→20:52)
[2017-08-12] MEDS: TORADOL 15 MG VIAL IVP PRN (13:35)
[2017-08-12] MEDS: PERCOCET TAB 5/325 MG PO PRN ×2 (13:43→18:18)
[2017-08-12 14:03] LABS: ERYTHROCYTE SEDIMENTATION RATE 11 MM/HOUR (0-20)
[2017-08-12 21:58] LABS: BILIRUBIN,URINE NEGATIVE (NEGATIVE); BLOOD/HEMOGLOBIN,URINE NEGATIVE (NEGATIVE); GLUCOSE, URINE NEGATIVE (NEGATIVE); KETONES,URINE NEGATIVE (NEGATIVE); LEUKOCYTE ESTERASE ,URINE NEGATIVE (NEGATIVE); NITRITES,URINE NEGATIVE (NEGATIVE); PROTEIN,URINE 2+ (NEGATIVE); UROBILINOGEN,URINE 1+ (NORMAL)
[2017-08-12 22:05] LABS: APPEARANCE,URINE SLIGHTLY HAZY (CLEAR); BACTERIA,URINE TRACE /HPF (NEGATIVE); CALCIUM OXALATE CRYSTALS,UR RARE /HPF (NEGATIVE); COLOR,URINE DARK YELLOW (YELLOW); RBC,URINE NONE SEEN /HPF (NEGATIVE); SQUAMOUS EPITHELIAL CELL,UR MODERATE /HPF (NEGATIVE)
[2017-08-13] MEDS: PERCOCET TAB 5/325 MG PO PRN ×3 (04:10→16:02)
[2017-08-13 06:19] LABS: BASOPHILS % (AUTO) 0.5 % (0.2-1.0); EOSINOPHILS # (AUTO) 0.3 x10^3/uL (0.0-0.2); EOSINOPHILS % (AUTO) 3.1 % (0.9-2.9); HEMATOCRIT 40.9 % (36.0-47.0); LYMPHOCYTES # (AUTO) 1.1 X10^3/uL (1.3-2.9); LYMPHOCYTES % (AUTO) 11.1 % (21.0-51.0); MEAN CORPUSCULAR HEMOGLOBIN 30.4 pg (27.0-34.0); MEAN CORPUSCULAR HGB CONC 34.3 g/dL (33.0-35.0); MEAN CORPUSCULAR VOLUME 88.6 fL (80.0-100.0); MEAN PLATELET VOLUME 11.1 fL (7.4-11.0); MONOCYTES # (AUTO) 0.9 x10^3/uL (0.3-0.8); MONOCYTES % (AUTO) 9.5 % (0.0-13.0); NEUTROPHILS # (AUTO) 7.5 x10^3/uL (2.2-4.8); NEUTROPHILS % (AUTO) 75.8 % (42.0-75.0); PLATELET COUNT 201 X10^3/uL (150.0-450.0); RED BLOOD COUNT 4.61 X10^6/uL (3.5-5.4); RED CELL DISTRIBUTION WIDTH 13.4 % (11.6-16.5); WHITE BLOOD COUNT 9.8 X10^3/uL (3.6-10.0)
[2017-08-13 06:28] LABS: ALANINE AMINOTRANSFERASE 54 Units/L (12-78); ALBUMIN 3.3 g/dL (3.4-5.0); ALKALINE PHOSPHATASE 92 Units/L (46-116); ASPARTATE AMINO TRANSFERASE 31 Units/L (15-37); BLOOD UREA NITROGEN 7 mg/dL (7-18); CALCIUM 8.6 mg/dL (8.5-10.1); CARBON DIOXIDE 27.1 mmol/L (21-32); CHLORIDE 104 mmol/L (98-107); COR CA(FOR HYPOALB) 9.2 mg/dL (8.5-10.1); COR NA(FOR HYPERGLY) 139 mmol/L (136-145); CREATININE 0.94 mg/dL (0.55-1.02); SODIUM 139 mmol/L (136-145); TOTAL PROTEIN 6.7 g/dL (6.4-8.2); eGFR BLACK RACES > 60 (>60); eGFR NON BLACK RACES > 60 (>60)
[2017-08-13] MEDS: DIFLUCAN PO SCH (08:28)
[2017-08-13] MEDS: TEFLARO 600 MG in D5W 50 ML IV 50 ML IV SCH (08:29)
[2017-08-13] MEDS ORDERED: VISTARIL PO PRN (08:56)
[2017-08-13] MEDS ORDERED: XANAX PO PRN (08:56)
[2017-08-13] MEDS ORDERED: NexIUM PO SCH (09:00)
[2017-08-13] MEDS ORDERED: NORMODYNE TAB 100 MG PO SCH (09:00)
[2017-08-13] MEDS ORDERED: SILVADENE TOP SCH (09:00)
[2017-08-13] MEDS ORDERED: PATIENT'S HOME MEDICATION (Budesonide-Formoterol 2 PUFF) IN SCH (09:00)
[2017-08-13] MEDS: TORADOL 15 MG VIAL IVP PRN (09:54)
--- NOTE | 2017-08-13 12:07 | US ---
HISTORY: Concern for mastitis with previous abnormal ultrasound Study: Right breast ultrasound Comparison: August 06, 2017 Technique: Multiple grayscale and color Doppler images of the right breast were obtained. Findings: Targeted sonographic evaluation of the region of interest at 2 o'clock approximately 10 cm from the n ipple demonstrates a superficial horizontally oriented macro lobulated but smoothly marginated and we ll circumscribed slightly hyperechoic nodule with posterior acoustical enhancement and a small amount of peripheral vascularity which measures 2.1 cm on today's exam and measured 2.5 cm on the prior and for which differential considerations include hematoma, lipoma, and complex sebaceous cyst less like ly. A more aggressive process is unlikely. There is no focal hypervascular fluid collection to sugges t abscess. No suspicious cystic or solid nodule is identified. There is no pathologic lymphadenopathy . IMPRESSION: No sonographic evidence of malignancy or abscess. Please see above discussion and prior imaging for d ifferential considerations and follow-up recommendations. Reported By:
[2017-08-13 12:19] VITALS: BP 143/81
[2017-08-13] MEDS ORDERED: PROVENTIL NEB TX 0.083% 2.5MG/ 3ML NEB SCH (13:00)
[2017-08-13] MEDS ORDERED: PULMICORT NEB TX 0.5 MG NEB SCH (21:00)
== END 2017-08-13 16:35 | disposition left against medical advice (07) | DRG 601 ==
LOC: UNDOADMIN 09:59 → MED/SURG 09:59
PROVIDERS: ADMIT Internal Medicine; ATTEND Internal Medicine
DX: N61.1 Abscess of the breast and nipple (principal); D72.828 Other elevated white blood cell count; N64.4 Mastodynia; K21.9 Gastro-esophageal reflux disease without esophagitis; I10 Essential (primary) hypertension; F41.8 Other specified anxiety disorders
CPT/HCPCS: 36415; 76642; 80053; 81001; 85025; 85652; 86141; 87040; 87070; 87075; 87205; 94640; Q0177; J0712; J7613

== ENCOUNTER 2017-08-17 23:40 | Emergency (ER) | payer BC ==
[2017-08-17 23:53] VITALS: BP 140/81; BMI 44.6
--- NOTE | 2017-08-17 23:55 | DR.GENAD ---
HPI - PCP Primary Care Physician: SANTINO - HPI Comment HPI Comment: SYMTOMS GOT WORSE TONIGHT. NO FEVER OR DIARRHEA. ALMOST PASS OUT DRIVING AND THEN WENT TO PASS OUT AT HOME. - Complaint/Symptoms Chief Complaint Doctors Comments: DIZZINESS, SYNCOPAL EPISODE AND NAUSEA TIMES SEVERAL HOURS. Chief Complaint:: DIZZY, DRY HEAVES Self Treatment fo Chief Complaint: EQUATE COLD AND FLU - Nurses notes reviewed Nurses Notes Review: Yes - Source History Provided: Patient - Mode of Arrival Mode of Arrival: EMS - Timing Onset of Chief Complaint: 08/17/17 Came on: Suddenly - Duration Duration: Intermittent Duration: Hours - Severity Severity: Moderate PMH - PMH Past Medical History: Yes Past Medical History: Anxiety, GERD, Hypertension Past Surgical History: Yes Surgical History: Appendectomy, Cholecystectomy Unable to Obtain Due To: Altered mental status - Family History History of Family Medical Conditions: Yes Family Medical History: Diabetes Mellitus, Cancer, Coronary Artery Disease, Hypertension - Social History Does patient currently use any type of tobacco product: No Have you used tobacco products in the last 12 months: No Type of Tobacco Use: None Does any household member use tobacco: No Alcohol Use: None Do you use any recreational Drugs:: No Lives With: Family Lives Where: Home - infectious screening In the last 2 months have you had wt loss of >10#?: NO Have you had fever, night sweats or hemotysis?: No Have you traveled outside the country in the last 6 months?: No Isolation: Standard ROS - Review of Systems Constitutional: Weakness, Fatigue. negative: Chills, Fever Eyes: Blurred Vision. negative: Eye Pain, Discharge ENTM: negative: Ear Pain, Nose Discharge, Nose Congestion, Throat Pain Respiratoy: negative: Productive Cough, Non-Productive Cough, Short of Breath, Wheezing, Hemoptysis Cardiovascular: Syncope. negative: Chest Pain, Edema Gastrointestinal/Abdominal: Nausea Genitourinary: No Symptoms Reported. negative: Dysuria, Frequency, Hematuria Neurological: Headache, Weakness, Dizziness Musculoskeletal: Muscle Pain Integumentary: No Symptoms Reported Hematologic/Lymphatic: No Symptoms Reported Endocrine: No Symptoms Reported All Other Systems: Reviewed and Negative PE - Vital Signs Vitals: Temperature 98.5 F Pulse Rate 84 Respiratory Rate 16 Blood Pressure [Left Arm] 143/81 Blood Pressure [Right Arm] 157/83 Blood Pressure 140/81 O2 Sat by Pulse Oximetry 97 - General Limitations: No Limitations General Appearance: Alert - Head Head Exam: Normal Inspection - Eyes Eye exam: Normal Appearance - ENT ENT Exam: Normal External Ear Exam External Ear Exam: Normal External Inspection TM/Canal Exam: Bilateral Normal Nose Exam: Normal Nose Exam Mouth Exam: Normal Inspection Throat Exam: Normal Inspection - Neck Neck Exam: Trachea Midline - Chest Chest Inspection: Symmetric Chest Wall Rise - Respiratory Respiratory Exam: Normal Lung Sounds Bilat Respiratory Exam: Bilateral Rhonchi, Lower Rhonchi - Cardiovascular Cardiovascular Exam: Regular Rate, Normal Rhythm, Normal Heart Sounds - Abdominal Exam Abdominal Exam: Normal Bowel Sounds, Soft. negative: Tenderness - Extremities Extremities Exam: Normal Inspection - Back Back Exam: Normal Inspection - Neurologic Neurological Exam: Alert, Oriented X3, CN II-XII Intact, Normal Gait, Motor Sensory Deficit - Psychiatric Psychiatric Exam: Anxious - Skin Skin Exam: Normal Color MDM - Additional Information Additional Information Obtained From: Family - Differential Diagnosis Differential Diagnosis: SYNCOPE, VERTIGO, NAUSEA, DIZZINESS, CVA, LABYRINTHITIS Course - Treatment Treatment: SEE ORDERS. - Reevaluation 1st: Improved - Education/Counseling Education/Counseling: Patient, Family, Education, Counseling Educated On: Treatment, Diagnosis, Needs for Follow Up ROR - Labs Reviewed Laboratory Results Reviewed?: Yes Result Diagrams: 08/18/17 00:10 08/18/17 00:10 Laboratory: WBC 11.6 X10^3/uL (3.6-10.0) H 08/18/17 00:10 RBC 4.75 X10^6/uL (3.5-5.4) 08/18/17 00:10 Hgb 14.5 g/dL (12.0-16.0) 08/18/17 00:10 Hct 42.0 % (36.0-47.0) 08/18/17 00:10 MCV 88.5 fL (80.0-100.0) 08/18/17 00:10 MCH 30.5 pg (27.0-34.0) 08/18/17 00:10 MCHC 34.5 g/dL (33.0-35.0) 08/18/17 00:10 RDW 13.7 % (11.6-16.5) 08/18/17 00:10 Plt Count 244 X10^3/uL (150.0-450.0) 08/18/17 00:10 MPV 9.9 fL (7.4-11.0) 08/18/17 00:10 Neut % 77.1 % (42.0-75.0) H 08/18/17 00:10 Lymph % 12.1 % (21.0-51.0) L 08/18/17 00:10 [place] % 9.1 % (0.0-13.0) 08/18/17 00:10 Eos % 1.3 % (0.9-2.9) 08/18/17 00:10 Baso % 0.4 % (0.2-1.0) 08/18/17 00:10 Neut # 9.0 x10^3/uL (2.2-4.8) H 08/18/17 00:10 Lymph # 1.4 X10^3/uL (1.3-2.9) 08/18/17 00:10 [place] # 1.1 x10^3/uL (0.3-0.8) H 08/18/17 00:10 Eos # 0.1 x10^3/uL (0.0-0.2) 08/18/17 00:10 Baso # 0.0 X10^3/uL (0.0-0.1) 08/18/17 00:10 Absolute Nucleated RBC 0.0 /100WBC 08/18/17 00:10 Sodium 138 mmol/L (136-145) 08/18/17 00:10 Corrected Sodium TNP 08/18/17 00:10 Potassium 3.6 mmol/L (3.5-5.1) 08/18/17 00:10 Chloride 104 mmol/L (98-107) 08/18/17 00:10 Carbon Dioxide 25.0 mmol/L (21-32) 08/18/17 00:10 BUN 7 mg/dL (7-18) 08/18/17 00:10 Creatinine 0.85 mg/dL (0.55-1.02) 08/18/17 00:10 Est GFR (MDRD) Af Amer > 60 (>60) 08/18/17 00:10 Est GFR (MDRD) Non-Af > 60 (>60) 08/18/17 00:10 Glucose 106 mg/dL (65-99) H 08/18/17 00:10 Calcium 8.9 mg/dL (8.5-10.1) 08/18/17 00:10 Corrected Calcium TNP 08/18/17 00:10 Total Bilirubin 0.40 mg/dL (0.2-1.0) 08/18/17 00:10 AST 37 Units/L (15-37) 08/18/17 00:10 ALT 130 Units/L (12-78) H 08/18/17 00:10 Alkaline Phosphatase 112 Units/L (46-116) 08/18/17 00:10 Creatine Kinase 117 Units/L (26-192) 08/18/17 00:10 CK-MB (CK-2) < 1.0 ng/mL (0-4.0) 08/18/17 00:10 CK/CKMB % Calc 0.9 % (<4) 08/18/17 00:10 Troponin I < 0.02 ng/mL (0-1.5) 08/18/17 00:10 Total Protein 7.6 g/dL (6.4-8.2) 08/18/17 00:10 Albumin 3.8 g/dL (3.4-5.0) 08/18/17 00:10 Globulin 3.8 g/dL (2.5-4.5) 08/18/17 00:10 Albumin/Globulin Ratio 1.0 Ratio (1.1-2.1) L 08/18/17 00:10 HCG, Qual Negative <10 mIU/mL 08/18/17 00:10 Specimen Type Clean catch urine 08/18/17 00:00 Urine Color Yellow (YELLOW) 08/18/17 00:00 Urine Appearance Clear (CLEAR) 08/18/17 00:00 Urine pH 6.0 (5.0 - 8.0) 08/18/17 00:00 Ur Specific [place] 1.010 (1.000-1.030) 08/18/17 00:00 Urine Protein Negative (NEGATIVE) 08/18/17 00:00 Urine Glucose (UA) Negative (NEGATIVE) 08/18/17 00:00 Urine Ketones Negative (NEGATIVE) 08/18/17 00:00 Urine Occult Blood Negative (NEGATIVE) 08/18/17 00:00 Urine Nitrite Negative (NEGATIVE) 08/18/17 00:00 Urine Bilirubin Negative (NEGATIVE) 08/18/17 00:00 Urine Urobilinogen Normal (NORMAL) 08/18/17 00:00 Ur Leukocyte Esterase Negative (NEGATIVE) 08/18/17 00:00 Urine RBC None seen /HPF (NEGATIVE) 08/18/17 00:00 Urine WBC 0-1 /HPF (NEGATIVE) 08/18/17 00:00 Ur Squamous Epith Cells Many /HPF (NEGATIVE) 08/18/17 00:00 Urine Bacteria Trace /HPF (NEGATIVE) 08/18/17 00:00 Ur Culture Indicated? No/not indicated 08/18/17 00:00 Influenza Type A (PCR) Negative (NEGATIVE) 08/18/17 00:30 Influenza Type B (PCR) Negative (NEGATIVE) 08/18/17 00:30 - XRAY XRAY Interpreted by: Radiologist XRAY Findings: REPORT DISCUSS WITH PATIENT. - EKG Rhythm: NSR - Discharge Plan Condition: Stable Prescriptions: Meclizine HCl [Antivert Tab 25 mg] 25 mg PO TID PRN #20 tab PRN Reason: Dizziness Ondansetron [Zofran ODT 8 mg] 8 mg PO Q8H PRN #12 tab PRN Reason: Nausea/Vomiting - Follow ups/Referrals Follow ups/Referrals: ANTONI DE [Primary Care Provider] - 3 days - Instructions Instructions: Vertigo, [id number], Dizziness, [id number], Syncope, Easy-to- Read Additional Instructions: RETURN TO ED IF WORSE.
[2017-08-18 00:24] LABS: BASOPHILS % (AUTO) 0.4 % (0.2-1.0); EOSINOPHILS # (AUTO) 0.1 x10^3/uL (0.0-0.2); EOSINOPHILS % (AUTO) 1.3 % (0.9-2.9); HEMOGLOBIN 14.5 g/dL (12.0-16.0); LYMPHOCYTES # (AUTO) 1.4 X10^3/uL (1.3-2.9); LYMPHOCYTES % (AUTO) 12.1 % (21.0-51.0); MEAN CORPUSCULAR HEMOGLOBIN 30.5 pg (27.0-34.0); MEAN CORPUSCULAR HGB CONC 34.5 g/dL (33.0-35.0); MEAN CORPUSCULAR VOLUME 88.5 fL (80.0-100.0); MEAN PLATELET VOLUME 9.9 fL (7.4-11.0); MONOCYTES # (AUTO) 1.1 x10^3/uL (0.3-0.8); MONOCYTES % (AUTO) 9.1 % (0.0-13.0); NEUTROPHILS % (AUTO) 77.1 % (42.0-75.0); PLATELET COUNT 244 X10^3/uL (150.0-450.0); RED BLOOD COUNT 4.75 X10^6/uL (3.5-5.4); RED CELL DISTRIBUTION WIDTH 13.7 % (11.6-16.5); WHITE BLOOD COUNT 11.6 X10^3/uL (3.6-10.0)
[2017-08-18 00:31] LABS: BILIRUBIN,URINE NEGATIVE (NEGATIVE); BLOOD/HEMOGLOBIN,URINE NEGATIVE (NEGATIVE); GLUCOSE, URINE NEGATIVE (NEGATIVE); KETONES,URINE NEGATIVE (NEGATIVE); LEUKOCYTE ESTERASE ,URINE NEGATIVE (NEGATIVE); NITRITES,URINE NEGATIVE (NEGATIVE); PROTEIN,URINE NEGATIVE (NEGATIVE); UROBILINOGEN,URINE NORMAL (NORMAL)
[2017-08-18 00:36] LABS: BLOOD UREA NITROGEN 7 mg/dL (7-18); CALCIUM 8.9 mg/dL (8.5-10.1); CHLORIDE 104 mmol/L (98-107); CREATININE 0.85 mg/dL (0.55-1.02); SODIUM 138 mmol/L (136-145); TROPONIN I < 0.02 ng/mL (0-1.5); eGFR BLACK RACES > 60 (>60); eGFR NON BLACK RACES > 60 (>60)
--- NOTE | 2017-08-18 00:39 | CT ---
CT head without contrast Indication: Vomiting and headache Technique: Axial images from the skullbase to the vertex without contrast. Coronal and sagittal refor mats provided. Comparison: 07/04/[address] Findings: There is no acute intracranial hemorrhage, mass or mass effect. There is no extra-axial flu id collection or abnormal area of hypoattenuation to suggest infarction. Ventricles and sulci are nor mal. Review of bone windows shows no osseous lesion. Paranasal sinuses and mastoid air cells are narcisa r. Impression: No acute intracranial hemorrhage Reported By:
[2017-08-18 00:41] LABS: ALANINE AMINOTRANSFERASE 130 Units/L (12-78); ALBUMIN 3.8 g/dL (3.4-5.0); ALKALINE PHOSPHATASE 112 Units/L (46-116); ASPARTATE AMINO TRANSFERASE 37 Units/L (15-37); CKMB % 0.9 % (<4); CREATINE KINASE 117 Units/L (26-192); CREATINE KINASE MB < 1.0 ng/mL (0-4.0); TOTAL PROTEIN 7.6 g/dL (6.4-8.2)
[2017-08-18 00:45] LABS: APPEARANCE,URINE CLEAR (CLEAR); BACTERIA,URINE TRACE /HPF (NEGATIVE); COLOR,URINE YELLOW (YELLOW); RBC,URINE NONE SEEN /HPF (NEGATIVE); SQUAMOUS EPITHELIAL CELL,UR MANY /HPF (NEGATIVE)
[2017-08-18] MEDS ORDERED: ZOFRAN INJ 4 MG VIAL IVP ONE (01:59)
[2017-08-18] MEDS ORDERED: ZOFRAN INJ 4 MG VIAL ONE (02:02)
[2017-08-18 02:36] LABS: SERUM PREGNANCY TEST, QUAL NEGATIVE <10 mIU/mL
== END 2017-08-18 02:55 | disposition home or self-care (01) ==
LOC: ER 23:40
DX: R42 Dizziness and giddiness (principal); R55 Syncope and collapse
CPT/HCPCS: 36415; 70450; 80053; 81001; 82550; 82553; 84484; 84703; 85025; 87502; 93005; 93010; 96365; 96374; 96375; 99283; 99285; J2405

== ENCOUNTER 2017-08-26 04:51 | Emergency (ER) | payer BC ==
[2017-08-26 05:01] VITALS: BP 108/74
--- NOTE | 2017-08-26 05:35 | DR.GENAD ---
HPI - PCP Primary Care Physician: RUSTY - Complaint/Symptoms Chief Complaint Doctors Comments: Patient reports that she was diagnosed with Infulenza on last night in [place]. She has taken the Tamiflu and I have not gotten better. I explained that she would not be automatically admitted because of the diagnosis because she is otherwise healthy. The elderly would be considered candidates for admission because of their age age and co-mobididies. Chief Complaint:: DIAGNOSED WITH FLU IN [place]; GOTTEN WORSE Self Treatment fo Chief Complaint: PT STATES SHE HAS TAKEN THE TAMIFLU; TYLENOL ; IBUPROFEN FOR TEMP OF 103.4 - Source History Provided: Patient - Mode of Arrival Mode of Arrival: Ambulatory - Timing Onset of Chief Complaint: 08/25/15 PMH - PMH Past Medical History: Yes Past Medical History: GERD, Hypertension Past Surgical History: Yes Surgical History: Appendectomy, Cholecystectomy - Family History History of Family Medical Conditions: No Family Medical History: Diabetes Mellitus, Cancer, Coronary Artery Disease, Hypertension - Social History Alcohol Use: None Do you use any recreational Drugs:: No Lives With: Alone Lives Where: Home - infectious screening In the last 2 months have you had wt loss of >10#?: NO Have you had fever, night sweats or hemotysis?: No Have you traveled outside the country in the last 6 months?: No Isolation: Standard PE - Vital Signs Vitals: Temperature 98.4 F Pulse Rate 84 Respiratory Rate 20 Blood Pressure [Left Arm] 143/81 Blood Pressure [Right Arm] 157/83 Blood Pressure 108/74 O2 Sat by Pulse Oximetry 96 - Diagnosis Discharge Problem: Influenza A - Discharge Plan Disposition: LWBS After Triage Condition: Stable - Follow ups/Referrals Follow ups/Referrals: RONA OJEDA [Primary Care Provider] - 3 days - Instructions
== END 2017-08-26 05:36 | disposition left against medical advice (07) ==
LOC: ER 04:51
DX: J11.1 Influenza due to unidentified influenza virus with other respiratory manifestations (principal)
CPT/HCPCS: 99281; 99282

== ENCOUNTER 2017-12-25 18:18 | Emergency (ER) | payer BC ==
[2017-12-25 18:27] VITALS: BP 125/75; BMI 41.0
[2017-12-25] MEDS ORDERED: TORADOL 60 MG VIAL IM ONE (19:11)
--- NOTE | 2017-12-25 19:12 | DR.GENAD ---
HPI - PCP Primary Care Physician: HE ELLINGTONP - HPI Comment HPI Comment: PATIENT INJUREF LT FOOT AFTER FALLING. SHE HEARD POPPING SOUNG. FOOT SWOLLEN AND PATIENT NOT ABLE TO PUT WEIGHT ON LT FOOT. - Complaint/Symptoms Chief Complaint Doctors Comments: INJURY LEFT FOOT BEFORE COMING TO ED. Chief Complaint:: APPROXIMATELY 1 HOUR AGO PT STEPPED OFF SIDEWALK AND SAID THAT LEFT FOOT ROLLED UNDER HER AND SHE HEARD A SNAP. iS NOT ABLE TO PUT ANY WEIGHT ON LEFT FOOT AT ALL SINCE THEN. - Nurses notes reviewed Nurses Notes Review: Yes - Source History Provided: Patient - Mode of Arrival Mode of Arrival: Ambulatory - Timing Onset of Chief Complaint: 12/25/17 Came on: Suddenly - Duration Duration: Constant Duration: Hours - Severity Severity: Moderate PMH - PMH Past Medical History: Yes Past Medical History: Anxiety, Depression, GERD, Hypertension Past Surgical History: Yes Surgical History: Appendectomy, Cholecystectomy Past Surgical History Comment: MULTIPLE D&CS - Family History History of Family Medical Conditions: Yes Family Medical History: Diabetes Mellitus, Cancer, Coronary Artery Disease, Hypertension - Social History Does patient currently use any type of tobacco product: Yes Have you used tobacco products in the last 12 months: No Type of Tobacco Use: None Does any household member use tobacco: No Alcohol Use: Rarely Do you use any recreational Drugs:: No Lives With: Family Lives Where: Home - infectious screening In the last 2 months have you had wt loss of >10#?: NO Have you had fever, night sweats or hemotysis?: No Have you traveled outside the country in the last 6 months?: No Isolation: Standard ROS - Review of Systems Constitutional: No Symptoms Reported Eyes: No Symptoms Reported ENTM: No Symptoms Reported Respiratoy: No Symptoms Reported Cardiovascular: No Symptoms Reported Gastrointestinal/Abdominal: No Symptoms Reported Genitourinary: No Symptoms Reported Neurological: No Symptoms Reported Musculoskeletal: Left, Foot (PAIN AND SWELLING.) Integumentary: Change in Color, Bruises Hematologic/Lymphatic: No Symptoms Reported Endocrine: No Symptoms Reported All Other Systems: Reviewed and Negative PE - Vital Signs Vitals: Temperature 99.3 F Pulse Rate 89 Respiratory Rate 20 Blood Pressure [Left Arm] 143/81 Blood Pressure [Right Arm] 157/83 Blood Pressure 125/75 O2 Sat by Pulse Oximetry 97 - General Limitations: No Limitations General Appearance: Alert - Head Head Exam: Normal Inspection - Eyes Eye exam: PERRL - ENT ENT Exam: Normal External Ear Exam External Ear Exam: Normal External Inspection Throat Exam: Normal Inspection - Neck Neck Exam: Trachea Midline - Extremities Extremities Exam: Tenderness (LT FOOT SWOLLEN AND TENDER. ROM DECREASE.) - Neurologic Neurological Exam: Alert, Oriented X3 - Psychiatric Psychiatric Exam: Normal Affect, Normal Mood - Skin Skin Exam: Erythema MDM - Differential Diagnosis Differential Diagnosis: LEFT FOOT CONTUSION, FRACTURE, SPRAIN Course - Treatment Treatment: SEE ORDERS. - Education/Counseling Education/Counseling: Patient, Family, Education Educated On: Treatment, Diagnosis, Needs for Follow Up ROR - XRAY XRAY Interpreted by: Radiologist XRAY Findings: REPORT DISCUSS WITH PATIENT. - Diagnosis Discharge Problem: Contusion of left foot, initial encounter Sprain of foot, left Qualifiers: Encounter type: initial encounter Qualified Code(s): S93.602A - Unspecified sprain of left foot, initial encounter - Discharge Plan Disposition: HOME, SELF-CARE Condition: Stable Prescriptions: Hydrocodone-Acet 5 mg/325 mg [Reading 5/325 mg Tab] 1 tab PO Q6H PRN #12 tab PRN Reason: Pain Ibuprofen [MOTRIN TAB 800 MG *] 800 mg PO Q8H PRN #30 tab PRN Reason: Pain/Inflammation - Follow ups/Referrals Follow ups/Referrals: RONA OJEDA [Primary Care Provider] - 2 days - Instructions Instructions: Foot Contusion, [id number], Foot Sprain Additional Instructions: RETURN TO ED IF WORSE.
[2017-12-25] MEDS ORDERED: TORADOL 60 MG VIAL ONE (19:14)
--- NOTE | 2017-12-25 19:27 | RAD ---
HISTORY: Left foot pain Study: 01/28/2015 views of the right/left foot. Comparison: None Findings: No acute fracture or dislocation. Joint spaces are well aligned. No significant soft tissue swelling or injury can be seen. IMPRESSION: 1. No acute abnormalities in the left foot. Reported By:
== END 2017-12-25 20:13 | disposition home or self-care (01) ==
LOC: ER 18:33
DX: S90.32XA Contusion of left foot, initial encounter (principal); S93.602A Unspecified sprain of left foot, initial encounter; W19.XXXA Unspecified fall, initial encounter; Y92.9 Unspecified place or not applicable
CPT/HCPCS: 73630; 96372; 99282; J1885

== ENCOUNTER 2018-01-12 18:42 | Emergency (ER) | payer BC ==
[2018-01-12 18:47] VITALS: BP 130/80; BMI 40.6
[2018-01-12] MEDS ORDERED: TORADOL 60 MG VIAL IM ONE (20:24)
[2018-01-12] MEDS ORDERED: NORFLEX INJ IM ONE (20:24)
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
[2018-01-12] MEDS ORDERED: TORADOL 60 MG VIAL ONE (20:31)
[2018-01-12] MEDS ORDERED: NORFLEX INJ ONE (20:31)
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
[2018-01-12] MEDS ORDERED: DECADRON INJ IM ONE (21:37)
[2018-01-12] MEDS ORDERED: DECADRON INJ ONE (21:38)
== END 2018-01-12 21:50 | disposition home or self-care (01) ==
LOC: ER 18:52
DX: S39.012A Strain of muscle, fascia and tendon of lower back, initial encounter (principal); S16.1XXA Strain of muscle, fascia and tendon at neck level, initial encounter; M47.817 Spondylosis without myelopathy or radiculopathy, lumbosacral region; Y33.XXXA Other specified events, undetermined intent, initial encounter
CPT/HCPCS: 72050; 72110; 96372; 99282; 99283; J1100; J1885; J2360

== ENCOUNTER 2018-03-11 14:16 | Inpatient (IN) ==
[2018-03-11] MEDS ORDERED: NS 1/2 1000 ML IV 1,000 ML IV ONE (16:03)
[2018-03-11] MEDS: ZITHROMAX INJ 500 MG VIAL 500 MG in NS 250 ML IV 250 ML IV SCH ×2 (16:15→17:59)
[2018-03-11] MEDS: ROBITUSSIN DM PO SCH ×2 (16:15→21:38)
[2018-03-11] MEDS: NS 1/2 1000 ML IV 1,000 ML IV SCH (16:16)
[2018-03-11] MEDS: SOLU-Medrol 125 MG VIAL IVP SCH ×2 (16:16→21:38)
[2018-03-11 16:18] LABS: BASOPHILS % (AUTO) 0.4 % (0.2-1.0); EOSINOPHILS # (AUTO) 0.2 x10^3/uL (0.0-0.2); EOSINOPHILS % (AUTO) 2.2 % (0.9-2.9); HEMATOCRIT 44.9 % (36.0-47.0); HEMOGLOBIN 15.3 g/dL (12.0-16.0); LYMPHOCYTES % (AUTO) 10.5 % (21.0-51.0); MEAN CORPUSCULAR HEMOGLOBIN 31.1 pg (27.0-34.0); MEAN CORPUSCULAR HGB CONC 34.1 g/dL (33.0-35.0); MEAN CORPUSCULAR VOLUME 91.2 fL (80.0-100.0); MEAN PLATELET VOLUME 10.1 fL (7.4-11.0); MONOCYTES # (AUTO) 0.8 x10^3/uL (0.3-0.8); MONOCYTES % (AUTO) 8.5 % (0.0-13.0); NEUTROPHILS # (AUTO) 7.2 x10^3/uL (2.2-4.8); NEUTROPHILS % (AUTO) 78.4 % (42.0-75.0); PLATELET COUNT 236 X10^3/uL (150.0-450.0); RED BLOOD COUNT 4.92 X10^6/uL (3.5-5.4); RED CELL DISTRIBUTION WIDTH 13.7 % (11.6-16.5); WHITE BLOOD COUNT 9.2 X10^3/uL (3.6-10.0)
[2018-03-11] MEDS ORDERED: SALINE 3% 15 ML NEB TX ONE (16:27)
[2018-03-11] MEDS: ZOSYN VIAL 4.5 GRAMS 4.5 G in NS 100 ML IV + SPIKE MINIBAG* 100 ML IV SCH ×2 (16:29→21:38)
[2018-03-11 16:38] VITALS: BMI 40.4
[2018-03-11 16:56] LABS: ALANINE AMINOTRANSFERASE 262 Units/L (12-78); ALBUMIN 3.7 g/dL (3.4-5.0); ALKALINE PHOSPHATASE 139 Units/L (46-116); ASPARTATE AMINO TRANSFERASE 111 Units/L (15-37); BLOOD UREA NITROGEN 11 mg/dL (7-18); CALCIUM 8.7 mg/dL (8.5-10.1); CARBON DIOXIDE 25.8 mmol/L (21-32); CHLORIDE 105 mmol/L (98-107); CREATININE 1.11 mg/dL (0.55-1.02); SODIUM 137 mmol/L (136-145); TOTAL PROTEIN 7.8 g/dL (6.4-8.2); eGFR NON BLACK RACES > 60 (>60)
--- NOTE | 2018-03-11 17:37 | RAD ---
Exam: Chest two views History: 32-year-old female with cough Comparison: Previous chest radiograph from 03/10/2018 Findings: Heart size and pulmonary vasculature are normal. Lungs are clear with no infiltrate or significant ef fusion on either side. Bony thorax is unremarkable as well. Impression: No acute cardiopulmonary abnormality is seen on this exam. Reported By:
--- NOTE | 2018-03-11 18:16 | DR.H&P ---
H&P - History & Physical for Day of: H&P Date: 03/11/18 - Chief Complaint Chief Complaint: CCC, FEVER, WEAKNESS - History of Present Illness History of Present Illness: 32 WF DIRECT ADMIT, PT WAS SEEN IN ER ON 03/09 WITH CO CCC, FEVER AND ABDOMINAL PAIN. PT HAD ABD XRAY WNL. PT HAD ELEVATED WBC AND CONTINUES WITH CHEST CONGESTION, TIGHTNESS AND WHEEZING. PT CO FEVER UP TO 102. PT HAS PMH OF OBESITY HTN, OA, GERD. PT IS SMOKER. PT ADMITTED FOR PNEUMONIA PROTOCOL WITH BLOOD AND SPUTUM CULTURES, IV ABTX, RESP CONSULT. - Past Medical History Past Medical History: Anxiety, Depression, GERD, Hypertension - Past Surgical History Surgical History: Appendectomy, Cholecystectomy, Other - Family History Family Medical History: Diabetes Mellitus, Cancer, MS, Hypertension - Social History Does patient currently use any type of tobacco product: Yes Have you used tobacco products in the last 12 months: Yes Type of Tobacco Use: Cigarettes Does any household member use tobacco: No Alcohol Use: None Drug Use: Prescription Drugs - Medications Home Medications: ciprofloxacin Allergy (Verified 07/04/17 20:17) sulfamethoxazole Allergy (Verified 07/04/17 20:17) CONTINUE taking the following medications bupropion HCl 1 tab PO DAILY 03/11/18 [History] esomeprazole magnesium 1 tab PO DAILY 03/11/18 [History] labetalol 1 tab PO BID 03/11/18 [History] levocetirizine 1 tab PO HS 03/11/18 [History] quetiapine 1.5 tab PO DAILY 03/11/18 [History] - Review of Systems Constitutional: Fever, Chills, Weakness, Malaise Eyes: No Symptoms Reported Respiratory: Cough, Pleuritic Pain, Sputum, Wheezing Cardiovascular: No Symptoms Reported Gastrointestinal: Nausea Genitourinary: No Symptoms Reported Musculoskeletal: Back Pain Skin: No Symptoms Reported Neurological: No Symptoms Reported - Physical Exam Vital Signs: Temperature 98.1 F Pulse Rate [Right Brachial] 85 Respiratory Rate 17 Blood Pressure [Left Arm] 100/60 Blood Pressure [Right Arm] 157/83 Blood Pressure 118/78 Oriented: Normal Eyes: Normal Ear: Normal Nose: Normal Throat: Normal Respiratory: RLL Diminished, LLL Diminished Cardiovascular: Normal : Normal Auscultation: Bowel Sounds: Normal Palpation: Normal Tenderness: RUQ, LUQ, Epigastric Skin: Normal Musculoskeletal: Back:Lumbar Psychiatric: Anxiety Affect: Angry, Anxious Speech Pattern: Clear, Appropriate - Assessment/Plan (1) Bronchitis Status: Acute Plan: PT ADMITTED FOR PNEUMONIA PROTOCOL WITH BLOOD AND SPUTUM CULTURES, IV ABTX , RESP CONSULT. VERIFY AND RESUME HOME MEDS. BP MONITORING (2) Anxiety Status: Chronic (3) Hypertension Qualifiers: Status: Chronic - Allergies Allergies/Adverse Reactions: Allergies Allergy/AdvReac Type Severity Reaction Status Date / Time ciprofloxacin Allergy Verified 07/04/17 20:17 sulfamethoxazole Allergy Verified 07/04/17 20:17
[2018-03-11 18:23] LABS: AMYLASE 38 Units/L (25-115); LIPASE 186 Units/L (73-393)
[2018-03-11] MEDS ORDERED: PATIENT'S HOME MEDICATION (Levocetirizine [Levocetirizine] 1 TAB) PO SCH (21:00)
[2018-03-11] MEDS: DUONEB 0.5 MG/3 MG NEB SCH (21:19)
[2018-03-11] MEDS ORDERED: NS 250 ML IV 250 ML IV ONE (21:19)
[2018-03-11] MEDS: NORMODYNE TAB 100 MG PO SCH (21:37)
[2018-03-11] MEDS: ZyrTEC TAB 10 MG PO SCH (21:38)
[2018-03-11] MEDS: PROTONIX INJ 40 MG VIAL IVP SCH (21:45)
[2018-03-11] MEDS: SEROquel TAB 100 MG PO SCH (22:24)
[2018-03-12] MEDS: DUONEB 0.5 MG/3 MG NEB SCH ×6 (01:11→20:40)
[2018-03-12 05:23] LABS: BASOPHILS % (AUTO) 0.1 % (0.2-1.0); HEMATOCRIT 42.1 % (36.0-47.0); HEMOGLOBIN 14.4 g/dL (12.0-16.0); LYMPHOCYTES # (AUTO) 0.4 X10^3/uL (1.3-2.9); LYMPHOCYTES % (AUTO) 3.4 % (21.0-51.0); MEAN CORPUSCULAR HEMOGLOBIN 30.9 pg (27.0-34.0); MEAN CORPUSCULAR HGB CONC 34.2 g/dL (33.0-35.0); MEAN CORPUSCULAR VOLUME 90.4 fL (80.0-100.0); MEAN PLATELET VOLUME 10.4 fL (7.4-11.0); MONOCYTES # (AUTO) 0.2 x10^3/uL (0.3-0.8); MONOCYTES % (AUTO) 1.3 % (0.0-13.0); NEUTROPHILS # (AUTO) 12.4 x10^3/uL (2.2-4.8); NEUTROPHILS % (AUTO) 95.2 % (42.0-75.0); PLATELET COUNT 234 X10^3/uL (150.0-450.0); RED BLOOD COUNT 4.65 X10^6/uL (3.5-5.4); RED CELL DISTRIBUTION WIDTH 13.3 % (11.6-16.5)
[2018-03-12] MEDS ORDERED: NS 1/2 1000 ML IV 1,000 ML IV ONE ×2 (05:32→20:21)
[2018-03-12 05:38] LABS: ALANINE AMINOTRANSFERASE 194 Units/L (12-78); ALBUMIN 3.3 g/dL (3.4-5.0); ALKALINE PHOSPHATASE 125 Units/L (46-116); ASPARTATE AMINO TRANSFERASE 51 Units/L (15-37); BLOOD UREA NITROGEN 9 mg/dL (7-18); CALCIUM 8.9 mg/dL (8.5-10.1); CARBON DIOXIDE 23.7 mmol/L (21-32); CHLORIDE 104 mmol/L (98-107); COR CA(FOR HYPOALB) 9.5 mg/dL (8.5-10.1); COR NA(FOR HYPERGLY) 138 mmol/L (136-145); CREATININE 0.87 mg/dL (0.55-1.02); SODIUM 136 mmol/L (136-145); TOTAL PROTEIN 7.3 g/dL (6.4-8.2); eGFR NON BLACK RACES > 60 (>60)
[2018-03-12 06:06] LABS: BAND NEUTROPHILS % 6 % (0-10)
[2018-03-12 06:07] LABS: BASOPHILS % (MANUAL) 1 % (0-1); PLATELET MORPHOLOGY COMMENT NORMAL (NORMAL)
[2018-03-12] MEDS: SOLU-Medrol 125 MG VIAL IVP SCH (06:15)
[2018-03-12] MEDS: NS 1/2 1000 ML IV 1,000 ML IV SCH ×2 (06:15→20:32)
[2018-03-12] MEDS: ZOSYN VIAL 4.5 GRAMS 4.5 G in NS 100 ML IV + SPIKE MINIBAG* 100 ML IV SCH ×3 (06:15→22:00)
[2018-03-12] MEDS: ROBITUSSIN DM PO SCH ×4 (08:57→20:35)
[2018-03-12] MEDS: PROTONIX INJ 40 MG VIAL IVP SCH (08:57)
[2018-03-12] MEDS: WELLBUTRIN XL 300 MG (DAILY) PO SCH (08:57)
[2018-03-12] MEDS: NexIUM PO SCH (08:57)
[2018-03-12] MEDS: NORMODYNE TAB 100 MG PO SCH ×2 (08:57→20:33)
[2018-03-12] MEDS: VIBRAMYCIN 100 MG in D5W 250 ML IV 250 ML IV SCH ×2 (08:58→20:35)
[2018-03-12] MEDS ORDERED: QUETIAPINE PO SCH (09:00)
[2018-03-12] MEDS ORDERED: SEROquel TAB 100 MG PO SCH (09:00)
--- NOTE | 2018-03-12 10:24 | US ---
HISTORY: Abnormal LFTs, upper abdominal pain Study: Hepatic sonogram, right upper quadrant ultrasound Comparison: None Technique: Multiple grayscale sonographic images were obtained. Findings: The liver is normal in size and configuration and without cyst mass or biliary ductal dilatation. The gallbladder is surgically absent. The common duct measured 6.5 mm. The head and body of the pancreas appeared normal. The tail was obscured by overlying bowel gas. The right kidney measures 11.7 x 5.4 x 6.1 cm and demonstrated no solid masses, hydronephrosis, stones, or perinephric fluid collections. IMPRESSION: No significant abnormality identified Reported By:
[2018-03-12] MEDS ORDERED: LEVSIN/MAALOX/LIDOC VISC PO PRN (12:20)
[2018-03-12] MEDS: NORCO 5/325 MG TAB PO PRN ×2 (14:21→20:35)
--- NOTE | 2018-03-12 18:46 | PCM.PROG ---
Progress Note - Progress Note for Day of Date of Exam: 03/12/18 - Subjective Subjective: 32 WF DIRECT ADMIT FROM DR ESPINOZA OFFICE WITH ACUTE BRONCHITIS, PT HAS DIFFUSE EXP WHEEZING ON EXAM THIS AM AND CO CHEST TIGHTNESS. PT CURRENTLY ON IV ATBX, RESP THERAPY AND GIVEN IV SOLU MEDROL, WITH REPORTS OF SLIGHT IMPROVEMENT IN SOB. - Past Medical Family Social History Past Med/Fam/Surg Hx: No changes since H&P Allergies: Allergies ciprofloxacin Allergy (Verified 07/04/17 20:17) sulfamethoxazole Allergy (Verified 07/04/17 20:17) - Review of Systems ROS: No change since H&P - Vital Signs and I&O's Vital Signs: Temperature 98.5 F Pulse Rate [Right Brachial] 68 Pulse Rate 78 Respiratory Rate 20 Blood Pressure [Left Arm] 100/60 Blood Pressure [Right Arm] 117/55 Blood Pressure 118/78 O2 Sat by Pulse Oximetry 98 Intake and Output: Intake & Output 03/10/18 03/11/18 03/12/18 03/13/18 11:59 11:59 11:59 11:59 Intake Total 2278 / 2278 1140 / 1140 Balance 2278 / 2278 1140 / 1140 - Physical Exam Oriented: Normal Eyes: Normal Ear: Normal Nose: Normal Throat: Normal Respiratory: Wheezes, Rhonchi Cardiovascular: Normal : Normal Auscultation: Bowel Sounds: Normal Tenderness: RUQ, LUQ, Epigastric Skin: Normal Musculoskeletal: Back:Lumbar Psychiatric: Anxiety Affect: Angry, Anxious Speech Pattern: Clear, Appropriate - Laboratory and Diagnostics Result Diagrams: 03/12/18 04:20 03/12/18 04:20 Labs: 03/11/18 16:04 Blood Blood Culture - Preliminary 03/11/18 17:58 Sputum - Expectorated Sputum Sputum Culture - Preliminary 03/11/18 17:58 Sputum - Expectorated Sputum - Final Laboratory WBC 13.0 X10^3/uL (3.6-10.0) H 03/12/18 04:20 RBC 4.65 X10^6/uL (3.5-5.4) 03/12/18 04:20 Hgb 14.4 g/dL (12.0-16.0) 03/12/18 04:20 Hct 42.1 % (36.0-47.0) 03/12/18 04:20 MCV 90.4 fL (80.0-100.0) 03/12/18 04:20 MCH 30.9 pg (27.0-34.0) 03/12/18 04:20 MCHC 34.2 g/dL (33.0-35.0) 03/12/18 04:20 RDW 13.3 % (11.6-16.5) 03/12/18 04:20 Plt Count 234 X10^3/uL (150.0-450.0) 03/12/18 04:20 Plt Count Comment Adequate (ADEQUATE) 03/12/18 04:20 MPV 10.4 fL (7.4-11.0) 03/12/18 04:20 Neut % (Auto) 95.2 % (42.0-75.0) H 03/12/18 04:20 Lymph % (Auto) 3.4 % (21.0-51.0) L 03/12/18 04:20 [place] % (Auto) 1.3 % (0.0-13.0) 03/12/18 04:20 Eos % (Auto) 0.0 % (0.9-2.9) L 03/12/18 04:20 Baso % (Auto) 0.1 % (0.2-1.0) L 03/12/18 04:20 Neut # (Auto) 12.4 x10^3/uL (2.2-4.8) H 03/12/18 04:20 Lymph # (Auto) 0.4 X10^3/uL (1.3-2.9) L 03/12/18 04:20 [place] # (Auto) 0.2 x10^3/uL (0.3-0.8) L 03/12/18 04:20 Eos # (Auto) 0.0 x10^3/uL (0.0-0.2) 03/12/18 04:20 Baso # (Auto) 0.0 X10^3/uL (0.0-0.1) 03/12/18 04:20 Absolute Nucleated RBC 0.0 /100WBC 03/12/18 04:20 Total Counted 100 03/12/18 04:20 Neutrophils % (Manual) 86 % (39-76) H 03/12/18 04:20 Band Neutrophils % 6 % (0-10) 03/12/18 04:20 Lymphocytes % (Manual) 6 % (13-43) L 03/12/18 04:20 Monocytes % (Manual) 1 % (4-9) L 03/12/18 04:20 Basophils % (Manual) 1 % (0-1) 03/12/18 04:20 Plt Morphology Comment Normal (NORMAL) 03/12/18 04:20 RBC Morphology Normal (NORMAL) 03/12/18 04:20 Sodium 136 mmol/L (136-145) 03/12/18 04:20 Corrected Sodium 138 mmol/L (136-145) 03/12/18 04:20 Potassium 3.9 mmol/L (3.5-5.1) 03/12/18 04:20 Chloride 104 mmol/L (98-107) 03/12/18 04:20 Carbon Dioxide 23.7 mmol/L (21-32) 03/12/18 04:20 BUN 9 mg/dL (7-18) 03/12/18 04:20 Creatinine 0.87 mg/dL (0.55-1.02) 03/12/18 04:20 Est GFR (MDRD) Af Amer > 60 (>60) 03/12/18 04:20 Est GFR (MDRD) Non-Af > 60 (>60) 03/12/18 04:20 Glucose 181 mg/dL (65-99) H 03/12/18 04:20 Calcium 8.9 mg/dL (8.5-10.1) 03/12/18 04:20 Corrected Calcium 9.5 mg/dL (8.5-10.1) 03/12/18 04:20 Total Bilirubin 0.10 mg/dL (0.2-1.0) L 03/12/18 04:20 AST 51 Units/L (15-37) H 03/12/18 04:20 ALT 194 Units/L (12-78) H 03/12/18 04:20 Alkaline Phosphatase 125 Units/L (46-116) H 03/12/18 04:20 Total Protein 7.3 g/dL (6.4-8.2) 03/12/18 04:20 Albumin 3.3 g/dL (3.4-5.0) L 03/12/18 04:20 Globulin 4.0 g/dL (2.5-4.5) 03/12/18 04:20 Albumin/Globulin Ratio 0.8 Ratio (1.1-2.1) L 03/12/18 04:20 Amylase 38 Units/L (25-115) 03/11/18 16:04 Lipase 186 Units/L (73-393) 03/11/18 16:04 - Plan (1) Bronchitis Status: Acute Plan: CONTINUE PNEUMONIA PROTOCOL WITH BLOOD AND SPUTUM CULTURES, IV ABTX, RESP CONSULT. BP MONITORING (2) Anxiety Status: Chronic (3) Hypertension Status: Chronic Qualifiers: (4) Positive blood culture Status: Acute Plan: POSSIBLE CONTAMINATION, WILL REPEAT BC TODAY. CONTINUE IV ATBX, RESP CARE. MONITOR V/S
[2018-03-12] MEDS: SEROquel TAB 100 MG PO SCH (20:34)
[2018-03-12] MEDS: ZyrTEC TAB 10 MG PO SCH (20:34)
[2018-03-12] MEDS: TUSSIONEX PENNKINETIC SUSP PO PRN (20:36)
[2018-03-13] MEDS: DUONEB 0.5 MG/3 MG NEB SCH ×6 (00:50→21:49)
[2018-03-13] MEDS: ZOSYN VIAL 4.5 GRAMS 4.5 G in NS 100 ML IV + SPIKE MINIBAG* 100 ML IV SCH ×3 (05:24→23:33)
[2018-03-13 06:12] LABS: ALANINE AMINOTRANSFERASE 120 Units/L (12-78); ALBUMIN 3.1 g/dL (3.4-5.0); ALKALINE PHOSPHATASE 102 Units/L (46-116); ASPARTATE AMINO TRANSFERASE 21 Units/L (15-37); BLOOD UREA NITROGEN 9 mg/dL (7-18); CALCIUM 8.4 mg/dL (8.5-10.1); CARBON DIOXIDE 26.9 mmol/L (21-32); CHLORIDE 105 mmol/L (98-107); COR CA(FOR HYPOALB) 9.1 mg/dL (8.5-10.1); COR NA(FOR HYPERGLY) 140 mmol/L (136-145); CREATININE 0.91 mg/dL (0.55-1.02); SODIUM 139 mmol/L (136-145); TOTAL PROTEIN 6.6 g/dL (6.4-8.2); eGFR NON BLACK RACES > 60 (>60)
[2018-03-13 06:14] LABS: BASOPHILS % (AUTO) 0.3 % (0.2-1.0); EOSINOPHILS # (AUTO) 0.1 x10^3/uL (0.0-0.2); EOSINOPHILS % (AUTO) 0.9 % (0.9-2.9); HEMATOCRIT 40.9 % (36.0-47.0); LYMPHOCYTES # (AUTO) 1.9 X10^3/uL (1.3-2.9); LYMPHOCYTES % (AUTO) 13.7 % (21.0-51.0); MEAN CORPUSCULAR HEMOGLOBIN 31.2 pg (27.0-34.0); MEAN CORPUSCULAR HGB CONC 34.3 g/dL (33.0-35.0); MEAN PLATELET VOLUME 10.5 fL (7.4-11.0); MONOCYTES # (AUTO) 0.8 x10^3/uL (0.3-0.8); MONOCYTES % (AUTO) 5.6 % (0.0-13.0); NEUTROPHILS # (AUTO) 11.2 x10^3/uL (2.2-4.8); NEUTROPHILS % (AUTO) 79.5 % (42.0-75.0); PLATELET COUNT 221 X10^3/uL (150.0-450.0); RED BLOOD COUNT 4.49 X10^6/uL (3.5-5.4); RED CELL DISTRIBUTION WIDTH 13.5 % (11.6-16.5); WHITE BLOOD COUNT 14.1 X10^3/uL (3.6-10.0)
[2018-03-13] MEDS: NexIUM PO SCH (08:18)
[2018-03-13] MEDS: NORMODYNE TAB 100 MG PO SCH ×2 (08:19→20:55)
[2018-03-13] MEDS: NORCO 5/325 MG TAB PO PRN ×3 (08:19→20:54)
[2018-03-13] MEDS: WELLBUTRIN XL 300 MG (DAILY) PO SCH (08:20)
[2018-03-13] MEDS: PROTONIX INJ 40 MG VIAL IVP SCH (08:20)
[2018-03-13] MEDS: VIBRAMYCIN 100 MG in D5W 250 ML IV 250 ML IV SCH ×2 (08:20→20:50)
[2018-03-13] MEDS: ROBITUSSIN DM PO SCH ×4 (08:21→20:44)
[2018-03-13] MEDS: TUSSIONEX PENNKINETIC SUSP PO PRN (08:21)
[2018-03-13] MEDS: PULMICORT NEB TX 0.5 MG NEB SCH ×2 (09:55→21:49)
[2018-03-13] MEDS ORDERED: MUCINEX DM PO SCH (10:00)
[2018-03-13] MEDS: MUCINEX EXPECTORANT PO SCH ×2 (12:05→20:45)
[2018-03-13] MEDS: MEDROL DOSEPAK 4 MG PER TAB PO SCH ×4 (12:06→23:14)
[2018-03-13] MEDS: SEROquel TAB 100 MG PO SCH (20:45)
[2018-03-13] MEDS: ZyrTEC TAB 10 MG PO SCH (20:47)
[2018-03-13] MEDS: NS 1/2 1000 ML IV 1,000 ML IV SCH (23:14)
[2018-03-14] MEDS: DUONEB 0.5 MG/3 MG NEB SCH ×3 (00:55→08:20)
[2018-03-14] MEDS ORDERED: NS 1/2 1000 ML IV 1,000 ML IV ONE (03:59)
[2018-03-14] MEDS: NS 1/2 1000 ML IV 1,000 ML IV SCH (04:05)
[2018-03-14 05:28] LABS: BASOPHILS % (AUTO) 0.2 % (0.2-1.0); EOSINOPHILS % (AUTO) 0.1 % (0.9-2.9); LYMPHOCYTES # (AUTO) 1.2 X10^3/uL (1.3-2.9); LYMPHOCYTES % (AUTO) 6.5 % (21.0-51.0); MEAN CORPUSCULAR HEMOGLOBIN 30.6 pg (27.0-34.0); MEAN CORPUSCULAR HGB CONC 34.1 g/dL (33.0-35.0); MEAN CORPUSCULAR VOLUME 89.9 fL (80.0-100.0); MONOCYTES # (AUTO) 0.7 x10^3/uL (0.3-0.8); NEUTROPHILS % (AUTO) 89.2 % (42.0-75.0); PLATELET COUNT 243 X10^3/uL (150.0-450.0); RED BLOOD COUNT 4.56 X10^6/uL (3.5-5.4); RED CELL DISTRIBUTION WIDTH 13.5 % (11.6-16.5)
[2018-03-14 05:37] LABS: ALANINE AMINOTRANSFERASE 93 Units/L (12-78); ALBUMIN 3.2 g/dL (3.4-5.0); ALKALINE PHOSPHATASE 87 Units/L (46-116); ASPARTATE AMINO TRANSFERASE 15 Units/L (15-37); BLOOD UREA NITROGEN 8 mg/dL (7-18); CALCIUM 8.5 mg/dL (8.5-10.1); CARBON DIOXIDE 26.1 mmol/L (21-32); CHLORIDE 104 mmol/L (98-107); COR CA(FOR HYPOALB) 9.1 mg/dL (8.5-10.1); COR NA(FOR HYPERGLY) 138 mmol/L (136-145); CREATININE 0.87 mg/dL (0.55-1.02); SODIUM 137 mmol/L (136-145); TOTAL PROTEIN 6.8 g/dL (6.4-8.2); eGFR NON BLACK RACES > 60 (>60)
[2018-03-14] MEDS: MEDROL DOSEPAK 4 MG PER TAB PO SCH ×2 (05:42→06:11)
[2018-03-14] MEDS: TUSSIONEX PENNKINETIC SUSP PO PRN (05:57)
[2018-03-14] MEDS: ZOSYN VIAL 4.5 GRAMS 4.5 G in NS 100 ML IV + SPIKE MINIBAG* 100 ML IV SCH (06:11)
[2018-03-14] MEDS: NexIUM PO SCH (08:47)
[2018-03-14] MEDS: PROTONIX INJ 40 MG VIAL IVP SCH (08:47)
[2018-03-14] MEDS: VIBRAMYCIN 100 MG in D5W 250 ML IV 250 ML IV SCH (08:47)
[2018-03-14] MEDS: MUCINEX EXPECTORANT PO SCH (08:48)
[2018-03-14] MEDS: NORCO 5/325 MG TAB PO PRN (08:48)
[2018-03-14] MEDS: WELLBUTRIN XL 300 MG (DAILY) PO SCH (08:48)
[2018-03-14] MEDS: ROBITUSSIN DM PO SCH (08:48)
[2018-03-14] MEDS: NORMODYNE TAB 100 MG PO SCH (08:55)
[2018-03-14] MEDS ORDERED: MEDROL DOSEPAK 4 MG PER TAB PO NR (09:00)
[2018-03-14 09:14] VITALS: BP 130/77
[2018-03-14] MEDS ORDERED: ASTELIN NASAL SPRAY ENOSTRIL SCH (09:30)
[2018-03-14] MEDS ORDERED: ASTELIN NASAL SPRAY ENOSTRIL ONE (09:53)
[2018-03-14] MEDS ORDERED: PHARMACY CONSULT - DOSE _____ XX SCH (10:00)
[2018-03-14] MEDS ORDERED: FLONASE NASAL SPRAY ENOSTRIL SCH (10:00)
[2018-03-14] MEDS ORDERED: BROVANA IN SCH (10:30)
[2018-03-14] MEDS ORDERED: MEDROL DOSEPAK 4 MG PER TAB PO SCH (20:00)
[2018-03-14] MEDS ORDERED: SINGULAIR TAB 10 MG PO SCH (21:00)
[2018-03-15] MEDS ORDERED: MEDROL DOSEPAK 4 MG PER TAB PO SCH (06:00)
[2018-03-16] MEDS ORDERED: MEDROL DOSEPAK 4 MG PER TAB PO SCH (07:00)
[2018-03-17] MEDS ORDERED: MEDROL DOSEPAK 4 MG PER TAB PO SCH (06:00)
[2018-03-18] MEDS ORDERED: MEDROL DOSEPAK 4 MG PER TAB PO SCH (06:00)
== END 2018-03-14 12:30 | disposition home or self-care (01) | DRG 203 ==
LOC: MED/SURG 15:18
PROVIDERS: ADMIT Internal Medicine; ATTEND Internal Medicine
DX: I10 Essential (primary) hypertension; F41.8 Other specified anxiety disorders; F32.89 Other specified depressive episodes; D72.828 Other elevated white blood cell count; R53.1 Weakness; R10.84 Generalized abdominal pain; J20.8 Acute bronchitis due to other specified organisms; K21.9 Gastro-esophageal reflux disease without esophagitis; R06.02 Shortness of breath
CPT/HCPCS: 36415; 36600; 71020; 71046; 76705; 80053; 82150; 83690; 85025; 87040; 87070; 87205; 93005; 93010; 94640; 94760; A4222; C9113; J0456; J2543; J2930; J3490; J7050; J7060; J7620; J7626

== ENCOUNTER 2022-08-29 13:02 | Observation (INO) ==
[2022-08-29] MEDS ORDERED: BENTYL I.M. INJ 10 MG IM ONE (14:39)
--- NOTE | 2022-08-29 14:45 | DR.H&P ---
H&P - History & Physical for Day of: H&P Date: 08/29/22 - Chief Complaint Chief Complaint: abdominal pain, intractable nausea and vomiting - History of Present Illness History of Present Illness: PT IS 37 WF, DIRECT ADMIT FROM DR DE OFFICE WITH INTRACTABLE NAUSEA AND VOMITING WITH ABDOMINAL PAIN. PT WAS SEEN IN THE ER TWICE IN THE PAST 3 WEEKS. PT WAS SEEN ON 08/[address] SCAN REVEALING GASTRITIS AND ELEVATED WBC AT 20K. PT HAS PMH OF HTN AND DIABETES. PT DENIES ANY KNOWN FEVER AND FLU LIKE SYMPTOMS DURING THIS TIME. PT DENIES DIARRHEA. PT ADMITTED FOR TREATMENT AND EVALUATION OF ACUTE ILLNESS. - Past Medical History Past Medical History: Hypertension, Diabetes, GERD - Past Surgical History Surgical History: Appendectomy, Cholecystectomy, SHIFT MECHANIC Surgery - Family History Family Medical History: Diabetes Mellitus, Coronary Artery Disease - Social History Does patient currently use any type of tobacco product: Yes Have you used tobacco products in the last 12 months: Yes Type of Tobacco Use: Cigarettes Does any household member use tobacco: Yes Alcohol Use: None Drug Use: None Risks, benefits, and alternatives of opioids discussed: No - Medications Home Medications: No Known Drug Allergies Allergy (Verified 03/20/22 14:20) - Review of Systems Constitutional: Weakness, Malaise Eyes: No Symptoms Reported ENT: No Symptoms Reported Respiratory: No Symptoms Reported Cardiovascular: No Symptoms Reported Gastrointestinal: Nausea, Vomiting, Abdominal Pain Genitourinary: No Symptoms Reported Musculoskeletal: No Symptoms Reported Skin: No Symptoms Reported Neurological: No Symptoms Reported - Physical Exam Vital Signs: Blood Pressure [Left Arm] 137/72 Oriented: Normal Eyes: Normal Ear: Normal Nose: Normal Throat: Dry Respiratory: RLL Diminished, LLL Diminished Cardiovascular: Normal : Normal Auscultation: Bowel Sounds: Increased Tenderness: LUQ, LLQ, Epigastric Skin: Decreased Turgur Musculoskeletal: Back:Lumbar Psychiatric: Anxiety Affect: Anxious Speech Pattern: Clear, Appropriate - Assessment/Plan (1) Gastritis and duodenitis Status: Acute Plan: ADMIT, GENTLE IV HYDRATION. STOOL STUDIES, I&OS, PROTONIX IV BID. CBC, CMP, MAG, AMYLASE AND LIPASE ON ADMISSION. CT ABD PELVIS WITH CONTRAST (2) Nausea & vomiting Status: Acute (3) Hypertension Status: Chronic (4) Acute dehydration Status: Acute - Allergies Allergies/Adverse Reactions: Allergies Allergy/AdvReac Type Severity Reaction Status Date / Time No Known Drug Allergies Allergy Verified 03/20/22 14:20
[2022-08-29 14:52] LABS: BASOPHILS % (AUTO) 0.3 % (0.2-1.0); EOSINOPHILS # (AUTO) 0.1 x10^3/uL (0.0-0.2); EOSINOPHILS % (AUTO) 0.4 % (0.9-2.9); HEMATOCRIT 42.9 % (36.0-47.0); HEMOGLOBIN 14.5 g/dL (12.0-16.0); LYMPHOCYTES # (AUTO) 1.5 X10^3/uL (1.3-2.9); LYMPHOCYTES % (AUTO) 9.9 % (21.0-51.0); MEAN CORPUSCULAR HGB CONC 33.7 g/dL (33.0-35.0); MEAN CORPUSCULAR VOLUME 86.1 fL (80.0-100.0); MONOCYTES % (AUTO) 6.6 % (0.0-13.0); NEUTROPHILS # (AUTO) 12.1 x10^3/uL (2.2-4.8); NEUTROPHILS % (AUTO) 82.8 % (42.0-75.0); RED BLOOD COUNT 4.98 X10^6/uL (3.5-5.4); RED CELL DISTRIBUTION WIDTH 13.3 % (11.6-16.5); WHITE BLOOD COUNT 14.6 X10^3/uL (3.6-10.0)
[2022-08-29 15:10] LABS: ALANINE AMINOTRANSFERASE 47 Units/L (12-78); ALKALINE PHOSPHATASE 99 Units/L (46-116); AMYLASE 52 Units/L (25-115); ASPARTATE AMINO TRANSFERASE 35 Units/L (15-37); BLOOD UREA NITROGEN 6 mg/dL (7-18); CALCIUM 8.6 mg/dL (8.5-10.1); CARBON DIOXIDE 32.5 mmol/L (21-32); CREATININE 1.06 mg/dL (0.55-1.02); LIPASE 112 Units/L (73-393); MAGNESIUM 2.2 mg/dL (2.0-2.9); TOTAL PROTEIN 8.5 g/dL (6.4-8.2); eGFR NON BLACK RACES > 60 (>60)
[2022-08-29] MEDS: FLAGYL IV PREMIX 500 MG BAG 500 MG/100 ML BAG IV SCH ×2 (15:37→20:01)
[2022-08-29] MEDS: PROTONIX INJ 40 MG VIAL IVP SCH ×2 (15:37→20:01)
[2022-08-29] MEDS: NS 1,000 ML IV 1,000 ML IV SCH (15:37)
[2022-08-29] MEDS: ZOFRAN INJ 4 MG VIAL IVP SCH ×2 (15:43→22:56)
[2022-08-29 15:46] LABS: CHLORIDE 97 mmol/L (98-107); COR NA(FOR HYPERGLY) 139 mmol/L (136-145); SODIUM 138 mmol/L (136-145)
[2022-08-29 16:36] VITALS: BMI 43.6
[2022-08-29 16:42] LABS: BILIRUBIN,URINE NEGATIVE (NEGATIVE); BLOOD/HEMOGLOBIN,URINE 5+ (NEGATIVE); GLUCOSE, URINE NEGATIVE (NEGATIVE); KETONES,URINE NEGATIVE (NEGATIVE); LEUKOCYTE ESTERASE ,URINE NEGATIVE (NEGATIVE); NITRITES,URINE NEGATIVE (NEGATIVE); PROTEIN,URINE 1+ (NEGATIVE); UROBILINOGEN,URINE NORMAL (NORMAL)
[2022-08-29 16:55] LABS: APPEARANCE,URINE CLEAR (CLEAR); COLOR,URINE YELLOW (YELLOW)
[2022-08-29 16:56] LABS: BACTERIA,URINE TRACE /HPF (NEGATIVE); SQUAMOUS EPITHELIAL CELL,UR FEW /HPF (NEGATIVE)
[2022-08-29] MEDS ORDERED: K-RIDER 10 MEQ/NS 100 ML 10 MEQ/100 ML BAG IV PRN (17:10)
[2022-08-29] MEDS ORDERED: POTASSIUM CHL 40 MEQ/NS 0.45% 500 ML IV PRN (17:10)
[2022-08-29] MEDS ORDERED: POTASSIUM CHL 60 MEQ/NS 0.45% 500 ML IV PRN (17:10)
[2022-08-29] MEDS ORDERED: MAGNESIUM SULFATE 1 GRAM/100 mL PREMIX 1 G/100 ML BAG IV PRN ×2 (17:10)
[2022-08-29] MEDS ORDERED: KLOR-CON PO PRN (17:10)
[2022-08-29] MEDS ORDERED: MICRO K EXTEN CAP 10 MEQ PO PRN (17:10)
[2022-08-29] MEDS ORDERED: POTASSIUM CHLORIDE LIQ 20 MEQ UDC PO PRN (17:10)
[2022-08-29] MEDS: K-DUR TAB 20 MEQ PO PRN (17:50)
[2022-08-29] MEDS: NORCO 5/325 MG TAB PO PRN (20:02)
[2022-08-30] MEDS: FLAGYL IV PREMIX 500 MG BAG 500 MG/100 ML BAG IV SCH ×3 (02:21→14:54)
[2022-08-30] MEDS: NS 1,000 ML IV 1,000 ML IV SCH (05:29)
[2022-08-30] MEDS: NORCO 5/325 MG TAB PO PRN ×2 (06:00→15:02)
[2022-08-30] MEDS: ZOFRAN INJ 4 MG VIAL IVP SCH (06:00)
[2022-08-30 06:13] LABS: BASOPHILS # (AUTO) 0.1 X10^3/uL (0.0-0.1); BASOPHILS % (AUTO) 0.6 % (0.2-1.0); EOSINOPHILS # (AUTO) 0.1 x10^3/uL (0.0-0.2); EOSINOPHILS % (AUTO) 1.3 % (0.9-2.9); HEMATOCRIT 40.2 % (36.0-47.0); HEMOGLOBIN 13.7 g/dL (12.0-16.0); LYMPHOCYTES # (AUTO) 2.3 X10^3/uL (1.3-2.9); LYMPHOCYTES % (AUTO) 20.8 % (21.0-51.0); MEAN CORPUSCULAR HEMOGLOBIN 29.3 pg (27.0-34.0); MEAN CORPUSCULAR HGB CONC 34.1 g/dL (33.0-35.0); MEAN CORPUSCULAR VOLUME 85.9 fL (80.0-100.0); MEAN PLATELET VOLUME 9.6 fL (7.4-11.0); MONOCYTES % (AUTO) 9.1 % (0.0-13.0); NEUTROPHILS # (AUTO) 7.6 x10^3/uL (2.2-4.8); NEUTROPHILS % (AUTO) 68.2 % (42.0-75.0); RED BLOOD COUNT 4.68 X10^6/uL (3.5-5.4); RED CELL DISTRIBUTION WIDTH 13.6 % (11.6-16.5); WHITE BLOOD COUNT 11.1 X10^3/uL (3.6-10.0)
[2022-08-30 06:41] LABS: ALANINE AMINOTRANSFERASE 43 Units/L (12-78); ALBUMIN 3.3 g/dL (3.4-5.0); ALKALINE PHOSPHATASE 84 Units/L (46-116); ASPARTATE AMINO TRANSFERASE 29 Units/L (15-37); BLOOD UREA NITROGEN 6 mg/dL (7-18); CALCIUM 8.3 mg/dL (8.5-10.1); CARBON DIOXIDE 24.5 mmol/L (21-32); CHLORIDE 100 mmol/L (98-107); COR CA(FOR HYPOALB) 8.9 mg/dL (8.5-10.1); CREATININE 0.88 mg/dL (0.55-1.02); SODIUM 135 mmol/L (136-145); TOTAL PROTEIN 7.3 g/dL (6.4-8.2); eGFR NON BLACK RACES > 60 (>60)
[2022-08-30] MEDS ORDERED: NS 100 ML IV 100 ML ONE (07:26)
--- NOTE | 2022-08-30 08:13 | CT ---
HISTORYABDOMINAL PAIN, COLITIS, ELEVATED WBC hypertension and diabetes mellitus.STUDYABDOMEN/PELVIS WITH CONCOMPARISONCT abdomen and pelvis 08/25/2022TECHNIQUEMultiple CT axial images of the abdomen and pelvis were obtained with IV contrast. Coronal and sagittal images were reconstructed. Dose reduction techniques included Automated Exposure Control (AEC) and adjustment of mA and kV.FINDINGSThe lungs are well inflated with no pneumonia or pleural effusion. BasisThe liver is normal in size and configuration. Surgical clips are present in the gallbladder fossa from a cholecystectomy. The spleen is normal in size and shape.The adrenal glands are normal. The pancreas is normal.Renal enhancement is symmetric with no solid mass. There is no hydronephrosis or significant perirenal edema. The bladder is normally distended. It has no wall thickening or perivesical edema.The bowel is not dilated. There is no wall thickening in the bowel or edema around the bowel.Probable nabothian cysts seen in the lower uterine segment. Ovaries appear normal.No significant bone abnormality.IMPRESSION1. No acute finding or significant abnormalityElectronically signed by: Jj Gottlieb (Aug 30, 2022 08:12:48)
[2022-08-30] MEDS: K-DUR TAB 20 MEQ PO PRN (08:36)
[2022-08-30] MEDS: PROTONIX INJ 40 MG VIAL IVP SCH (08:36)
[2022-08-30] MEDS ORDERED: DONNATAL TAB PO ONE (08:42)
[2022-08-30 10:53] LABS: CRYPTOSPORIDIUM PARVUM ANTIGEN NEGATIVE (NEGATIVE); GIARDIA LAMBLIA ANTIGEN NEGATIVE (NEGATIVE)
[2022-08-30] MEDS ORDERED: DONNATAL TAB PO NR (12:00)
[2022-08-30] MEDS ORDERED: ZOFRAN INJ 4 MG VIAL IVP ONE (12:35)
[2022-08-30] MEDS ORDERED: AMOXIL CAP 500 MG PO SCH (13:00)
[2022-08-30] MEDS ORDERED: BIAXIN TAB 500 MG PO SCH (13:00)
[2022-08-30 16:21] VITALS: BP 151/87
== END 2022-08-30 18:00 | disposition home or self-care (01) ==
LOC: MED/SURG
PROVIDERS: ADMIT Internal Medicine; ATTEND Internal Medicine
DX: I10 Essential (primary) hypertension; B96.81 Helicobacter pylori [H. pylori] as the cause of diseases classified elsewhere; E86.0 Dehydration; K29.80 Duodenitis without bleeding; R11.2 Nausea with vomiting, unspecified; E11.65 Type 2 diabetes mellitus with hyperglycemia; R10.84 Generalized abdominal pain

== ENCOUNTER 2023-02-13 17:17 | Observation (INO) ==
[2023-02-13] MEDS ORDERED: PHENERGAN INJ 25 MG IM ONE (18:23)
[2023-02-13 18:26] VITALS: BMI 48.4
[2023-02-13 18:47] LABS: ERYTHROCYTE SEDIMENTATION RATE 27 MM/HOUR (0-20)
[2023-02-13 18:48] LABS: BASOPHILS % (AUTO) 0.5 % (0.2-1.0); EOSINOPHILS # (AUTO) 0.3 x10^3/uL (0.0-0.2); EOSINOPHILS % (AUTO) 2.7 % (0.9-2.9); HEMATOCRIT 39.6 % (36.0-47.0); HEMOGLOBIN 13.4 g/dL (12.0-16.0); LYMPHOCYTES # (AUTO) 1.5 X10^3/uL (1.3-2.9); LYMPHOCYTES % (AUTO) 15.7 % (21.0-51.0); MEAN CORPUSCULAR HEMOGLOBIN 28.9 pg (27.0-34.0); MEAN CORPUSCULAR HGB CONC 33.9 g/dL (33.0-35.0); MEAN CORPUSCULAR VOLUME 85.2 fL (80.0-100.0); MEAN PLATELET VOLUME 9.4 fL (7.4-11.0); MONOCYTES # (AUTO) 0.8 x10^3/uL (0.3-0.8); MONOCYTES % (AUTO) 8.1 % (0.0-13.0); NEUTROPHILS # (AUTO) 6.9 x10^3/uL (2.2-4.8); PLATELET COUNT 243 X10^3/uL (150.0-450.0); RED BLOOD COUNT 4.65 X10^6/uL (3.5-5.4); RED CELL DISTRIBUTION WIDTH 13.7 % (11.6-16.5); WHITE BLOOD COUNT 9.5 X10^3/uL (3.6-10.0)
[2023-02-13 18:58] LABS: ALANINE AMINOTRANSFERASE 25 Units/L (12-78); ALBUMIN 3.6 g/dL (3.4-5.0); ALKALINE PHOSPHATASE 90 Units/L (46-116); ASPARTATE AMINO TRANSFERASE 13 Units/L (15-37); BLOOD UREA NITROGEN 11 mg/dL (7-18); CALCIUM 8.3 mg/dL (8.5-10.1); CHLORIDE 105 mmol/L (98-107); COR NA(FOR HYPERGLY) 139 mmol/L (136-145); CREATININE 1.01 mg/dL (0.55-1.02); GLUCOSE 126 mg/dL (65-99); POTASSIUM 3.9 mmol/L (3.5-5.1); SODIUM 138 mmol/L (136-145); TOTAL PROTEIN 7.2 g/dL (6.4-8.2); eGFR NON BLACK RACES > 60 (>60)
[2023-02-13] MEDS: NS 1,000 ML IV 1,000 ML IV SCH (19:39)
[2023-02-13] MEDS: CLEOCIN 600 MG IV PREMIX 600 MG/50 ML BAG IV SCH ×2 (19:39→21:09)
[2023-02-13] MEDS: NORCO 5/325 MG TAB PO PRN (19:40)
[2023-02-13] MEDS: PROTONIX TAB 40 MG PO SCH (19:40)
[2023-02-13 20:41] LABS: BILIRUBIN,URINE NEGATIVE (NEGATIVE); BLOOD/HEMOGLOBIN,URINE NEGATIVE (NEGATIVE); GLUCOSE, URINE NEGATIVE (NEGATIVE); KETONES,URINE NEGATIVE (NEGATIVE); LEUKOCYTE ESTERASE ,URINE NEGATIVE (NEGATIVE); NITRITES,URINE NEGATIVE (NEGATIVE); PROTEIN,URINE NEGATIVE (NEGATIVE); UROBILINOGEN,URINE NORMAL (NORMAL)
[2023-02-13 20:42] LABS: APPEARANCE,URINE CLEAR (CLEAR); COLOR,URINE STRAW (YELLOW)
[2023-02-13] MEDS ORDERED: NovoLIN R (or HumuLIN R) SUBCUT PRN (20:46)
[2023-02-13] MEDS ORDERED: PROVENTIL NEB TX 0.083% 2.5MG/ 3ML NEB SCH (21:00)
[2023-02-13] MEDS: PROVENTIL NEB TX 0.083% 2.5MG/ 3ML NEB SCH (21:32)
[2023-02-13] MEDS: TORADOL 15 MG VIAL IVP PRN (23:55)
[2023-02-14] MEDS: NORCO 5/325 MG TAB PO PRN ×4 (03:58→20:28)
[2023-02-14] MEDS: CLEOCIN 600 MG IV PREMIX 600 MG/50 ML BAG IV SCH ×3 (05:33→21:59)
[2023-02-14] MEDS: TORADOL 15 MG VIAL IVP PRN ×2 (07:27→15:06)
--- NOTE | 2023-02-14 08:05 | RAD ---
HISTORYPT STATES THAT TWO DAYS AGO SHE HAD SOME TEETH REMOVED AND NOW HAS AN ABCESS. ALSO STATED THAT SINCE HAVING THE TEETH REMOVED SHE HAD A HEAD COLD.STUDYCHEST, 1 [id number]/20/2023.TECHNIQUEPA or AP view of the chestFINDINGSThe cardiac and mediastinal contours are within normal limits. The lungs are clear without focal consolidation or segmental collapse. No pleural effusion or pneumothorax.IMPRESSIONNo acute pulmonary process.Electronically signed by: Anatn Brunson (Feb 14, 2023 08:04:36)
[2023-02-14] MEDS: PROTONIX TAB 40 MG PO SCH (08:08)
[2023-02-14 08:33] LABS: HEMOGLOBIN 12.4 g/dL (12.0-16.0); RED CELL DISTRIBUTION WIDTH 13.5 % (11.6-16.5)
[2023-02-14 08:37] LABS: BASOPHILS % (AUTO) 0.4 % (0.2-1.0); EOSINOPHILS # (AUTO) 0.3 x10^3/uL (0.0-0.2); EOSINOPHILS % (AUTO) 4.2 % (0.9-2.9); HEMATOCRIT 36.9 % (36.0-47.0); LYMPHOCYTES % (AUTO) 25.4 % (21.0-51.0); MEAN CORPUSCULAR HEMOGLOBIN 28.6 pg (27.0-34.0); MEAN CORPUSCULAR HGB CONC 33.5 g/dL (33.0-35.0); MEAN CORPUSCULAR VOLUME 85.4 fL (80.0-100.0); MEAN PLATELET VOLUME 9.4 fL (7.4-11.0); MONOCYTES # (AUTO) 0.8 x10^3/uL (0.3-0.8); MONOCYTES % (AUTO) 9.6 % (0.0-13.0); NEUTROPHILS # (AUTO) 4.9 x10^3/uL (2.2-4.8); NEUTROPHILS % (AUTO) 60.4 % (42.0-75.0); PLATELET COUNT 226 X10^3/uL (150.0-450.0); RED BLOOD COUNT 4.32 X10^6/uL (3.5-5.4)
[2023-02-14 08:49] LABS: ALANINE AMINOTRANSFERASE 24 Units/L (12-78); ALBUMIN 3.1 g/dL (3.4-5.0); ALKALINE PHOSPHATASE 69 Units/L (46-116); ASPARTATE AMINO TRANSFERASE 15 Units/L (15-37); BLOOD UREA NITROGEN 11 mg/dL (7-18); CALCIUM 7.6 mg/dL (8.5-10.1); CARBON DIOXIDE 24.4 mmol/L (21-32); CHLORIDE 105 mmol/L (98-107); COR CA(FOR HYPOALB) 8.3 mg/dL (8.5-10.1); COR NA(FOR HYPERGLY) 139 mmol/L (136-145); CREATININE 1.07 mg/dL (0.55-1.02); GLUCOSE 156 mg/dL (65-99); POTASSIUM 3.7 mmol/L (3.5-5.1); SODIUM 138 mmol/L (136-145); TOTAL PROTEIN 6.3 g/dL (6.4-8.2); eGFR NON BLACK RACES > 60 (>60)
[2023-02-14] MEDS: PERIDEX or PERIOGARD MT SCH ×4 (08:49→20:28)
[2023-02-14] MEDS: ATARAX TAB 25 MG PO SCH ×3 (08:49→23:23)
[2023-02-14] MEDS: NS 1,000 ML IV 1,000 ML IV SCH ×2 (08:59→13:16)
[2023-02-14] MEDS: PROVENTIL NEB TX 0.083% 2.5MG/ 3ML NEB SCH ×3 (09:03→20:20)
[2023-02-14] MEDS ORDERED: SNACK - Diabetic Appropriate PO SCH (20:00)
[2023-02-14] MEDS: ZOFRAN INJ 4 MG VIAL IVP PRN (22:30)
[2023-02-15] MEDS: NS 1,000 ML IV 1,000 ML IV SCH (00:32)
[2023-02-15] MEDS: NORCO 5/325 MG TAB PO PRN (03:35)
[2023-02-15 04:35] VITALS: O2SAT 99
[2023-02-15 05:02] LABS: BASOPHILS # (AUTO) 0.2 X10^3/uL (0.0-0.1); BASOPHILS % (AUTO) 2.6 % (0.2-1.0); EOSINOPHILS # (AUTO) 0.3 x10^3/uL (0.0-0.2); HEMATOCRIT 37.3 % (36.0-47.0); HEMOGLOBIN 12.8 g/dL (12.0-16.0); LYMPHOCYTES # (AUTO) 1.7 X10^3/uL (1.3-2.9); LYMPHOCYTES % (AUTO) 18.9 % (21.0-51.0); MEAN CORPUSCULAR HEMOGLOBIN 29.2 pg (27.0-34.0); MEAN CORPUSCULAR HGB CONC 34.3 g/dL (33.0-35.0); MEAN CORPUSCULAR VOLUME 85.1 fL (80.0-100.0); MEAN PLATELET VOLUME 9.1 fL (7.4-11.0); MONOCYTES # (AUTO) 0.6 x10^3/uL (0.3-0.8); MONOCYTES % (AUTO) 6.5 % (0.0-13.0); NEUTROPHILS # (AUTO) 6.1 x10^3/uL (2.2-4.8); PLATELET COUNT 251 X10^3/uL (150.0-450.0); RED BLOOD COUNT 4.38 X10^6/uL (3.5-5.4); RED CELL DISTRIBUTION WIDTH 13.3 % (11.6-16.5); WHITE BLOOD COUNT 8.9 X10^3/uL (3.6-10.0)
[2023-02-15 05:25] LABS: ALANINE AMINOTRANSFERASE 22 Units/L (12-78); ALBUMIN 3.3 g/dL (3.4-5.0); ALKALINE PHOSPHATASE 79 Units/L (46-116); ASPARTATE AMINO TRANSFERASE 12 Units/L (15-37); BLOOD UREA NITROGEN 6 mg/dL (7-18); CALCIUM 7.8 mg/dL (8.5-10.1); CARBON DIOXIDE 22.3 mmol/L (21-32); CHLORIDE 106 mmol/L (98-107); COR CA(FOR HYPOALB) 8.4 mg/dL (8.5-10.1); COR NA(FOR HYPERGLY) 141 mmol/L (136-145); CREATININE 0.94 mg/dL (0.55-1.02); GLUCOSE 166 mg/dL (65-99); POTASSIUM 3.8 mmol/L (3.5-5.1); SODIUM 139 mmol/L (136-145); TOTAL PROTEIN 6.7 g/dL (6.4-8.2); eGFR NON BLACK RACES > 60 (>60)
[2023-02-15 05:35] VITALS: RESP 18
[2023-02-15] MEDS: CLEOCIN 600 MG IV PREMIX 600 MG/50 ML BAG IV SCH (05:35)
[2023-02-15] MEDS: ZOFRAN INJ 4 MG VIAL IVP PRN (05:48)
[2023-02-15] MEDS: PROVENTIL NEB TX 0.083% 2.5MG/ 3ML NEB SCH (06:11)
[2023-02-15 07:59] VITALS: BP 115/70; PULSE 84; TEMP 98
[2023-02-15] MEDS: PROTONIX TAB 40 MG PO SCH (08:14)
[2023-02-15] MEDS: PERIDEX or PERIOGARD MT SCH (08:14)
[2023-02-15] MEDS: ATARAX TAB 25 MG PO SCH (08:14)
== END 2023-02-15 10:10 | disposition home or self-care (01) ==
LOC: ICU → MED/SURG 02-14 18:32
PROVIDERS: ADMIT Internal Medicine; ATTEND Internal Medicine